=== PATIENT | male | born 1945 | race Caucasian/White ===

== ENCOUNTER 2017-09-10 22:54 | Inpatient (IN) | payer MEDICARE ==
[2017-09-10 23:32] LABS: #Lymphocytes 1.2 thou/uL (1.20-3.40); #Monocytes 0.9 thou/uL (0.11-0.59); #Neutrophils 12.9 thou/uL (1.40-6.50); %Basophils 0.2 % (0.0-1.0); %Eosinophils 0.1 % (0.0-10.0); %Lymphocytes 8.2 % (21.0-51.0); %Monocytes 5.8 % (0.0-10.0); Hematocrit 35.1 % (42.0-52.0); Mean Platelet Volume 8.8 fL (7.4-10.4); Red Blood Cell (RBC) Count 3.45 mill/uL (4.70-6.10)
--- NOTE | 2017-09-10 23:41 | RAD ---
AP CHEST: Indication: Emergency examination for shortness of breath. Comparison: None. FINDINGS: There is moderate cardiomegaly with mild to moderate pulmonary vascular congestion. There is perihil ar interstitial and airspace opacities suspicious for edema. No pleural effusion or pneumothorax is evident. No acute osseous abnormality is evident. A small amount of fluid is suspected within the ri ght minor fissure. IMPRESSION: Findings suspicious for mild CHF. POS: [facility]
[2017-09-10 23:53] LABS: ALT (SGPT) 13 U/L (8-55); AST (SGOT) 18 U/L (5-34); Alkaline Phosphatase 106 U/L (40-150); Anion Gap 16 mmol/L (10-20); BUN (Urea Nitrogen) 26 mg/dL (8.4-25.7); Bilirubin, Total 0.7 mg/dL (0.2-1.2); Calc. Creatinine Clearance 0 mL/min (70-130); Calcium 9.2 mg/dL (7.8-10.44); Carbon Dioxide 26 mmol/L (23-31); Chloride 98 mmol/L (98-107); Estimated GFR-MDRD 35; Globulin 3.9 g/dL (2.4-3.5); Magnesium 1.9 mg/dL (1.6-2.6); Protein, Total 7.9 g/dL (5.8-8.1)
[2017-09-10 23:57] LABS: Troponin I 0.067 ng/mL (< 0.028)
[2017-09-11] MEDS ORDERED: methylPREDNISolone Sod Succ/PF 125 MG/2 ML VIAL ONE (01:09)
[2017-09-11] MEDS ORDERED: Water For Inject, Bacteriostat 30 ML ONE (01:09)
[2017-09-11] MEDS ORDERED: Furosemide 20 MG/2 ML VIAL ONE (02:12)
[2017-09-11] MEDS ORDERED: Acetaminophen 325 MG TAB PO PRN (05:04)
[2017-09-11] MEDS ORDERED: Ondansetron HCl/PF 4 MG/2 ML Vial IVP PRN (05:04)
[2017-09-11] MEDS ORDERED: Ondansetron ODT 4 MG TAB SL PRN (05:04)
[2017-09-11] MEDS ORDERED: Lisinopril 5 MG TAB PO SCH ×2 (05:30→09:00)
[2017-09-11] MEDS ORDERED: Metoprolol Tartrate 25 MG TAB PO SCH ×2 (05:30→09:00)
[2017-09-11] MEDS: traMADol HCl 50 MG TAB PO PRN (05:37)
[2017-09-11] MEDS ORDERED: Furosemide 40 MG/4 ML VIAL ONE (06:35)
[2017-09-11] MEDS: Furosemide 40 MG/4 ML VIAL SLOW IVP SCH ×2 (06:39→14:20)
[2017-09-11] MEDS: Mometasone/Formoterol 120 PUFF INHALER INH SCH ×2 (06:53→19:05)
[2017-09-11] MEDS: Folic Acid 1 MG TAB PO SCH (08:38)
[2017-09-11] MEDS: Cyanocobalamin (Vitamin B-12) 1,000 MCG TAB PO SCH (08:38)
[2017-09-11] MEDS ORDERED: Furosemide 20 MG/2 ML VIAL SLOW IVP SCH (09:00)
[2017-09-11] MEDS ORDERED: Hydroxychloroquine Sulfate 200 MG TAB PO SCH (09:00)
--- NOTE | 2017-09-11 09:00 | RAD ---
PA AND LATERAL CHEST: Date: 09/11/17 HISTORY: Dyspnea. COMPARISON: 09/10/17. FINDINGS: Cardiac silhouette is mildly enlarged. Again noted is pulmonary vascular congestion and bilateral pe rihilar interstitial opacities which may be related to associated pulmonary edema. Interstitial dens ities at the medial right lung base have improved. There are small bilateral pleural effusions noted . There is a wedge-shaped compression fracture of the L1 vertebral body with at least 50% loss of he ight anteriorly. The exact age of this fracture is indeterminate based on this exam. Vascular calcif ications seen in the thoracic aorta. No other interval change. IMPRESSION: 1. CHF and mild pulmonary edema, but the interstitial edema does appear mildly improved at the righ t lung base. 2. Small bilateral pleural effusions. 3. Wedge-shaped compression fracture L1 vertebral body of indeterminate age. There is slight retrol isthesis of L1 on L2. POS: [facility]
[2017-09-11] MEDS: Hydroxychloroquine Sulfate 200 MG TAB PO SCH ×2 (09:27→20:02)
--- NOTE | 2017-09-11 12:21 | HP ---
PRIMARY CARE PHYSICIAN: Dr. Caprice Saeed at [facility] in [place]. CHIEF COMPLAINT: Shortness of breath. HISTORY OF PRESENT ILLNESS: Mr. Montes is a pleasant 71-year-old gentleman who was seen at [facility] on 09/11/2017. He reports that he has a history of lupus, tobacco abuse, and Agent [place] exposure in [place]. Yesterday morning, he developed shortness of breath and rhinorrhea at 4:00 a.m. The symptoms improved during the daytime. Yesterday evening, after he ate, he started having shortness of breath. He denies orthopnea. He reports shortness of breath with exertion. He denies any nausea or vomiting. He denies any chest pain. He reports that nebulizer treatments helped. He also reports wheezing and chest tightness. He also reports chills. REVIEW OF SYSTEMS: The following complete review of systems was negative, unless otherwise mentioned in the HPI or below: Constitutional: Weight loss or gain, sense of well-being, ability to conduct usual activities, exercise tolerance. Skin/Breast: Rash, itching, changes in hair growth or loss, nail changes, breast lumps, tenderness, swelling, nipple discharge. Eyes: Vision, double vision, tearing, blind spots, pain. ENT/Mouth: Headaches (location, time of onset, duration, precipitating factors) , vertigo, lightheadedness, injury. Vision, double vision, tearing, blind spots , pain, nose bleeding, colds, obstruction, discharge, dental difficulties, gingival bleeding, dentures, neck stiffness, pain, tenderness, masses in thyroid or other areas. Cardiovascular: Precordial pain, substernal distress, palpitations, syncope, dyspnea on exertion, orthopnea, nocturnal paroxysmal dyspnea, edema, cyanosis, hypertension, heart murmurs, varicosities, phlebitis, claudication. Respiratory: Pain, shortness of breath, wheezing, stridor, cough, hemoptysis, fever or night sweats. Gastrointestinal: Poor appetite, dysphagia, indigestion, abdominal pain, heartburn, eructation, nausea, vomiting, hematemesis, jaundice, constipation, or diarrhea, abnormal stools (brodie-colored, tarry, bloody, greasy, foul smelling ), flatulence, hemorrhoids, recent changes in bowel habits. Genitourinary: Urgency, frequency, dysuria, nocturia, hematuria, polyuria, oliguria, unusual (or change in) color of urine, stones, hesitancy, change in size of stream, dribbling, acute retention or incontinence, libido, potency. Musculoskeletal: Pain, swelling, redness or heat of muscles or joints, limitation, of motion, muscular weakness, atrophy, cramps. Neurologic/Psychiatric: Convulsions, paralyses, tremor, incoordination, paraesthesias, difficulties with memory of speech, sensory or motor disturbances , or muscular coordination (ataxia, tremor), emotional problems, anxiety, depression, previous psychiatric care, unusual perceptions, hallucinations. Allergy/Immunologic: Skin rash, anemia, bleeding tendency, polydipsia, polyuria , intolerance to heat or cold. PAST MEDICAL HISTORY: Significant for hypertension, lupus, skin cancer, spinal compression fracture, rheumatoid arthritis, and chronic kidney disease. PAST SURGICAL HISTORY: Significant for appendectomy, repair of severed ulnar nerve, colon resection due to colon cancer. SOCIAL HISTORY: The patient smokes 5-6 cigarettes a day. He denies alcohol use or recreational drug use. CODE STATUS: I discussed his code status. He is FULL CODE. Substitute decision maker is his partner, Olga Gill. FAMILY HISTORY: No family history of premature coronary artery disease. ALLERGIES: PENICILLIN. CURRENT MEDICATIONS: Lisinopril/hydrochlorothiazide 10/12.5 mg daily, metoprolol 25 mg daily, aspirin 81 mg daily, vitamin B12 1000 mcg daily, folic acid 1 mg daily, Plaquenil 200 mg in the morning and 100 mg at bedtime, and tramadol 50 mg every 4 hours. PHYSICAL EXAMINATION: GENERAL: On examination, Mr. Montes is awake and alert, not in acute distress. VITAL SIGNS: Blood pressure is 160/85, pulse is 74, he is breathing at rate of 16 and saturating 99% on 1 liter of oxygen. He is afebrile. EYES: No scleral icterus. No conjunctival pallor. ENT: Moist mucosal membranes, no oropharyngeal erythema or exudates. NECK: Supple, nontender, normal range of movement. Trachea is midline. RESPIRATORY: Accessory muscles of breathing are not active. Chest wall movements are symmetric bilaterally. He has occasional expiratory wheeze. He has bibasilar crackles. CARDIOVASCULAR: S1 and S2 are heard, regular. Peripheral pulses palpable. No carotid bruit, no pericardial rub. ABDOMEN: Soft, nontender, bowel sounds heard, no hepatomegaly, no splenomegaly. NEUROLOGIC: Cranial nerves II-XII are intact. Deep tendon reflexes are 2+. MUSCULOSKELETAL: Power is 5/5 in all 4 extremities. He has trace bilateral lower extremity edema. SKIN: Pigmentation changes over both upper extremities which patient reports is from Agent [place]p exposure. PSYCHIATRIC: Normal mood, normal affect, patient is oriented to person, place and time. LYMPHATIC: No cervical lymphadenopathy. IMAGING AND LABORATORY DATA: Mr. Montes's labs and investigations were reviewed. I reviewed his electrocardiogram, which shows sinus tachycardia with occasional premature ventricular complexes, no ST changes to suggest an acute coronary syndrome. I also reviewed his chest x-ray, which shows interstitial edema. Laboratory investigations show leukocytosis with 15,000 white cells, of which 85.7% are neutrophils, macrocytic anemia with hemoglobin 11.1, normal platelet count, elevated D-dimer of 1.15, normal electrolytes, elevated creatinine 1.90, elevated blood urea nitrogen 26, indeterminate troponin I of 0.067, elevated BNP of 3647 and an unremarkable liver profile. TSH is normal. ASSESSMENT AND PLAN: Mr. Montes is a pleasant 71-year-old gentleman who was seen at [facility] on 09/11/2017. His problem list includes: 1. Shortness of breath: Etiology is unclear, appears to be a combination of chronic obstructive pulmonary disease and congestive heart failure. 2. Chronic obstructive pulmonary disease: The patient does not have a history of chronic obstructive pulmonary disease. However, his presentation is consistent with chronic obstructive pulmonary disease exacerbation. He will receive oxygen, steroids, bronchodilators and antibiotics. 3. Congestive heart failure exacerbation: This appears to be new onset congestive heart failure. He will be treated with diuretics. We will check 2D echocardiogram. We will consult Cardiology Service for opinion and help with ongoing management. 4. History of rheumatoid arthritis: Continue Plaquenil. 5. Tobacco abuse: Patient has been advised to stop tobacco use. I will start him on nicotine replacement therapy. 6. Elevated D-dimer: V/Q scan is pending, we will follow the consult. 7. History of Agent Crisp exposure: No acute issues at this time. 8. Lupus: Appears stable. Many thanks for allowing me to participate in your patient's care. Please feel free to contact me with any questions or concerns. Estimated length of stay is greater than 2 midnights. MTDD
[2017-09-11] MEDS: Heparin 5,000 UNITS/ML VIAL SC SCH ×2 (14:20→20:01)
--- NOTE | 2017-09-11 15:14 | NM ---
VENTILATION PERFUSION LUNG SCAN: Date: 09/11/17 HISTORY: Hypoxia, elevated D-Dimer, assess for pulmonary embolism. TECHNIQUE: Ventilation imaging obtained following the inhalation of 8.8 mCi Xenon-133 gas by face mask. Perfusi on imaging obtained following the intravenous administration of 6.6 mCi technetium-99m labeled MAA. FINDINGS: Wash-in, equilibrium, and wash-out phase of ventilation imaging appears within normal limits. The pe rfusion imaging is unremarkable, demonstrating no evidence for a focal perfusion defect/deficit. IMPRESSION: Unremarkable VQ scan - very low probability for pulmonary embolism. POS: [facility]
[2017-09-11 18:10] LABS: Anion Gap 15 mmol/L (10-20); BUN (Urea Nitrogen) 33 mg/dL (8.4-25.7); Calc. Creatinine Clearance 35 mL/min (70-130); Calcium 9.8 mg/dL (7.8-10.44); Carbon Dioxide 27 mmol/L (23-31); Chloride 95 mmol/L (98-107); Estimated GFR-MDRD 37
[2017-09-11 18:21] LABS: Troponin I 0.428 ng/mL (< 0.028)
[2017-09-11] MEDS: Metoprolol Tartrate 50 MG TAB PO SCH (20:03)
--- NOTE | 2017-09-11 20:53 | CON ---
DATE OF CONSULTATION: 09/11/2017 HISTORY OF PRESENT ILLNESS: Fernando Monets is a 71-year-old white male with history of hypertension, lupus and Agent [place] exposure who was admitted with increased shortness of breath. This started at 4:00 a.m. this morning. He also noted increased shortness of breath with walking. He denied any nausea, vomiting or chest discomfort. He also noted wheezing. He then came to the emergency room for further evaluation. He usually is followed at the [facility]. PAST MEDICAL HISTORY: Hypertension. He also states that he has renal insufficiency and sees a worldwide chief creative officer at the [facility]. He has a history of Agent [place] exposure, rheumatoid arthritis and lupus. PAST SURGICAL HISTORY: Appendectomy, colon resection due to colon cancer and repair of ulnar nerve. MEDICATIONS: Include tramadol 50 q.4 hours, metoprolol 25 b.i.d., lisinopril 5 mg daily, Plaquenil 400 mg daily, folic acid 1 mg daily, Ecotrin 81 daily and vitamin B12 of 1000 mg daily. ALLERGIES: PENICILLIN. SOCIAL HISTORY: He has cut down to 5 cigarettes per day. He does not drink alcohol. FAMILY HISTORY: Negative for coronary artery disease. REVIEW OF SYSTEMS: Twelve-point review of system is otherwise unremarkable. PHYSICAL EXAMINATION: VITAL SIGNS: Blood pressure 167/78 and pulse 67. HEENT: PERRL. NECK: Supple. LUNGS: Chest reveals crackles at the bases and occasional expiratory wheezing. CARDIAC: S1 and S2 are normal, without any S3, S4 or murmurs. Carotid upstrokes normal without bruits. ABDOMEN: Normal bowel sounds, without tenderness, organomegaly. EXTREMITIES: Revealed no clubbing, cyanosis or edema. NEUROLOGIC: Grossly intact. SKIN: Warm and dry. LABORATORY AND X-RAY FINDINGS: EKG revealed sinus tachycardia with rate of 110 per minute with occasional PVCs, left axis deviation, probable left ventricular hypertrophy, nonspecific ST and T-wave changes. Hemoglobin 11.1, hematocrit 35.1, white count 15,000 and platelets 170,000. D-dimer 1.15, sodium 136, potassium 4.1, chloride 96, carbon dioxide 26, BUN 26, creatinine 1.90 and glucose 220. Troponin I 0.067. BNP 3647.8. TSH is normal. Urinalysis is unremarkable. Chest x-ray revealed mild pulmonary edema and small bilateral effusions with the elevated D-dimer and his renal insufficiency, he underwent lung ventilation perfusion scan which was low probability for pulmonary embolism. Echocardiogram revealed mild left atrial enlargement, mild global left ventricular hypokinesis with an ejection fraction of 40% to 45%, evidence of diastolic dysfunction, aortic valvular fibrosis, moderate mitral regurgitation, mild to moderate tricuspid regurgitation and mild pulmonic insufficiency. IMPRESSION: 1. Acute on chronic diastolic and systolic congestive heart failure with significantly elevated BNP, pleural effusions and pulmonary edema on chest x- ray. 2. Chronic obstructive pulmonary disease exacerbation. 3. Smoker. 4. Hypertension, poorly controlled. 5. History of lupus. 6. History of rheumatoid arthritis. 7. History of Agent [place] exposure. 8. Chronic kidney disease. PLAN: Creatinine will be repeated this afternoon as well as another set of cardiac enzymes. The patient will continue to be diuresed. I would increase his metoprolol to 50 mg b.i.d. Further evaluation probably will take place at [facility] in [place] where he receives most of his care where he wished to be further evaluated. ZANE
[2017-09-12 05:15] LABS: #Lymphocytes 0.8 thou/uL (1.20-3.40); #Monocytes 0.8 thou/uL (0.11-0.59); #Neutrophils 11.4 thou/uL (1.40-6.50); %Basophils 0.1 % (0.0-1.0); %Monocytes 6.2 % (0.0-10.0); Hematocrit 30.6 % (42.0-52.0); Mean Platelet Volume 9.5 fL (7.4-10.4); Red Blood Cell (RBC) Count 3.05 mill/uL (4.70-6.10)
[2017-09-12 05:35] LABS: Anion Gap 14 mmol/L (10-20); BUN (Urea Nitrogen) 39 mg/dL (8.4-25.7); Calc. Creatinine Clearance 35 mL/min (70-130); Calcium 9.5 mg/dL (7.8-10.44); Carbon Dioxide 30 mmol/L (23-31); Chloride 96 mmol/L (98-107); Estimated GFR-MDRD 36
[2017-09-12] MEDS: Furosemide 40 MG/4 ML VIAL SLOW IVP SCH (05:51)
[2017-09-12 06:25] VITALS: BMI 20.2
[2017-09-12] MEDS: Mometasone/Formoterol 120 PUFF INHALER INH SCH ×2 (06:52→18:34)
[2017-09-12 08:52] LABS: Hemoglobin A1c 5.3 % (4.0-6.0)
[2017-09-12] MEDS ORDERED: Communication Order-Pharmacy FS SCH (09:00)
[2017-09-12] MEDS: Cyanocobalamin (Vitamin B-12) 1,000 MCG TAB PO SCH (09:28)
[2017-09-12] MEDS: Hydroxychloroquine Sulfate 200 MG TAB PO SCH ×2 (09:29→21:42)
[2017-09-12] MEDS: predniSONE 20 MG TAB PO SCH (09:29)
[2017-09-12] MEDS: Sodium Chloride 0.9% 1,000 ML IV SCH ×2 (09:30→21:45)
[2017-09-12] MEDS: Folic Acid 1 MG TAB PO SCH (09:30)
[2017-09-12] MEDS: Metoprolol Tartrate 50 MG TAB PO SCH ×2 (09:30→21:42)
--- NOTE | 2017-09-12 12:01 | PDOC.PN ---
- Subjective Encounter Start Date: 09/12/17 Encounter Start Time: 09:00 Pt seen for followup re: NSTEMI. Denies chest pain, shortness of breath, fevers or chills. No nausea or vomiting. - Objective Resuscitation Status: Resuscitation Status FULL:Full Resuscitation Vital Signs & Weight: Vital Signs (12 hours) Temp Pulse Resp BP Pulse Ox 09/12/17 08:00 97.8 F 76 16 163/72 H 98 09/12/17 06:52 69 16 99 09/12/17 06:49 69 18 99 09/12/17 04:26 98.0 F 66 18 131/60 94 L Weight Weight 145 lb 9 oz I&O: 09/11/17 09/12/17 09/13/17 06:59 06:59 06:59 Intake Total 1440 Output Total 300 2680 Balance -300 -1240 Result Diagrams: 09/12/17 04:54 09/12/17 04:54 Phys Exam - Physical Examination Constitutional: NAD HEENT: PERRLA, moist MMs, sclera anicteric, oral pharynx no lesions Neck: no nodes, no JVD, supple, full ROM Respiratory: no wheezing, no rales, no rhonchi, clear to auscultation bilateral Cardiovascular: RRR, no rub Gastrointestinal: soft, non-tender, no distention, positive bowel sounds Musculoskeletal: pulses present Neurological: moves all 4 limbs Lymphatic: no nodes Psychiatric: normal affect, A&O x 3 Skin: normal turgor, cap refill <2 seconds Deviation from normal: Hyperpigmentation of upper extremities Dx/Plan (1) NSTEMI (non-ST elevated myocardial infarction) Code(s): I21.4 - NON-ST ELEVATION (NSTEMI) MYOCARDIAL INFARCTION Status: Acute (2) Lupus Code(s): L93.0 - DISCOID LUPUS ERYTHEMATOSUS Status: Chronic (3) Rheumatoid arthritis Code(s): M06.9 - RHEUMATOID ARTHRITIS, UNSPECIFIED Status: Chronic (4) Tobacco abuse Code(s): Z72.0 - TOBACCO USE Status: Chronic - Plan * . Pt's troponin in critical range now. Plan for cath tomorrow noted. Continue nicotine replacement therapy. Continue aspirin, beta laron, ACEI. Continue Plaquenil. Review of Systems - Review of Systems Constitutional: negative: Fever, Chills, Sweats, Weakness, Malaise Respiratory: negative: Cough, Dry, Shortness of Breath, Hemoptysis, SOB with Excertion, Pleuritic Pain, Sputum, Wheezing Cardiovascular: negative: Chest Pain, Palpitations, Orthopnea, Paroxysmal Noc. Dyspnea, Edema, Light Headedness Gastrointestinal: negative: Nausea, Vomiting, Abdominal Pain, Diarrhea, Constipation, Melena, Hematochezia Genitourinary: negative: Dysuria, Frequency, Incontinence, Hematuria, Retention - Medications/Allergies Allergies/Adverse Reactions: Allergies Allergy/AdvReac Type Severity Reaction Status Date / Time Penicillins Allergy Verified 09/11/17 04:55 Medications: Current Medications Albuterol/Ipratropium (Duoneb) 3 ml NEB Q6H PRN PRN Reason: SOB &/or Wheezing Albuterol/Ipratropium (Duoneb) 3 ml NEB [id number] [facility] Last Admin: 09/12/17 06:49 Dose: 3 ml Aspirin (Aspirin Chewable) 81 mg PO DAILY [facility] Last Admin: 09/12/17 09:30 Dose: 81 mg Cyanocobalamin (Vitamin B-12) 1,000 mcg PO DAILY [facility] Last Admin: 09/12/17 09:28 Dose: 1,000 mcg Folic Acid (Folvite) 1 mg PO DAILY [facility] Last Admin: 09/12/17 09:30 Dose: 1 mg Hydralazine HCl (Apresoline) 10 mg SLOW IVP Q4H PRN PRN Reason: SBP>170 Hydroxychloroquine Sulfate (Plaquenil) 200 mg PO DAILY [facility] Last Admin: 09/12/17 09:29 Dose: 200 mg Hydroxychloroquine Sulfate (Plaquenil) 100 mg PO HS [facility] Last Admin: 09/11/17 20:02 Dose: 100 mg Sodium Chloride (Normal Saline 0.9%) 1,000 mls @ 100 mls/hr IV .Q10H [facility] Last Admin: 09/12/17 09:30 Dose: Not Given Metoprolol Tartrate (Lopressor) 50 mg PO BID [facility] Last Admin: 09/12/17 09:30 Dose: 50 mg Mometasone Furoate/Formoterol Fumar (Dulera 100 Mcg/5 Mcg Inhaler) 2 puff INH BID-RT [facility] Last Admin: 09/12/17 06:52 Dose: 2 puff Pantoprazole Sodium (Protonix) 40 mg PO DAILY [facility] Last Admin: 09/12/17 09:32 Dose: 40 mg Prednisone (Prednisone) 40 mg PO DAILY [facility] Last Admin: 09/12/17 09:29 Dose: 40 mg Tramadol HCl (Ultram) 50 mg PO Q4H PRN PRN Reason: Pain Last Admin: 09/11/17 05:37 Dose: 50 mg
[2017-09-12] MEDS ORDERED: Sodium Chloride 0.9% 10 ML ONE (20:11)
[2017-09-12] MEDS: traMADol HCl 50 MG TAB PO PRN (21:43)
[2017-09-13 05:20] LABS: #Lymphocytes 1.3 thou/uL (1.20-3.40); #Monocytes 0.7 thou/uL (0.11-0.59); #Neutrophils 8.2 thou/uL (1.40-6.50); %Eosinophils 0.1 % (0.0-10.0); %Lymphocytes 12.4 % (21.0-51.0); %Monocytes 7.1 % (0.0-10.0); Hematocrit 30.4 % (42.0-52.0); Mean Platelet Volume 9.3 fL (7.4-10.4); Red Blood Cell (RBC) Count 3.05 mill/uL (4.70-6.10); White Blood Cell (WBC) Count 10.2 thou/uL (4.8-10.8)
[2017-09-13 05:30] LABS: Anion Gap 10 mmol/L (10-20); BUN (Urea Nitrogen) 41 mg/dL (8.4-25.7); Calc. Creatinine Clearance 35 mL/min (70-130); Carbon Dioxide 31 mmol/L (23-31); Chloride 96 mmol/L (98-107); Estimated GFR-MDRD 41
[2017-09-13] MEDS ORDERED: Sodium Chloride 0.9% 10 ML ONE (05:50)
[2017-09-13] MEDS: Sodium Chloride 0.9% 1,000 ML IV SCH ×2 (05:58→18:12)
[2017-09-13] MEDS: Hydroxychloroquine Sulfate 200 MG TAB PO SCH ×2 (05:59→20:36)
[2017-09-13] MEDS: Metoprolol Tartrate 50 MG TAB PO SCH ×2 (06:00→20:36)
[2017-09-13] MEDS: predniSONE 20 MG TAB PO SCH (06:00)
[2017-09-13] MEDS: traMADol HCl 50 MG TAB PO PRN ×2 (06:05→20:37)
[2017-09-13] MEDS: Mometasone/Formoterol 120 PUFF INHALER INH SCH ×2 (06:30→19:27)
[2017-09-13] MEDS ORDERED: Heparin 10,000 UNITS/1 ML VIAL ONE (07:06)
[2017-09-13] MEDS ORDERED: Midazolam HCl 2 mg/2 ml Vial ONE (09:41)
[2017-09-13] MEDS ORDERED: Fentanyl 100 MCG/2 ML VIAL ONE (09:41)
[2017-09-13] MEDS ORDERED: Nitroglycerin 100MG/250ML BOT 250 ML ONE (10:04)
[2017-09-13] MEDS ORDERED: Bivalirudin 250 MG VIAL ONE (10:05)
[2017-09-13] MEDS ORDERED: Clopidogrel Bisulfate 300 MG TAB ONE (10:13)
[2017-09-13] MEDS ORDERED: Nitroglycerin 0.4 MG TAB (25 Tab Bottle) SL PRN (11:00)
[2017-09-13] MEDS ORDERED: Morphine 4 MG/ML Carpuject SLOW IVP PRN (11:00)
[2017-09-13] MEDS ORDERED: Sodium Chloride 0.9% 1,000 ML IV SCH (11:03)
[2017-09-13] MEDS ORDERED: hydrALAZINE 25 MG TAB PO SCH (11:45)
[2017-09-13] MEDS ORDERED: hydrALAZINE 20 MG/ML VIAL ONE (11:53)
[2017-09-13] MEDS ORDERED: traMADol HCl 50 MG TAB ONE ×2 (12:21→16:24)
[2017-09-13] MEDS ORDERED: Iopamidol 370 76% 50 ML VIAL FS ONE (14:46)
[2017-09-13] MEDS ORDERED: Iopamidol 370 76% 100 ML VIAL ONE (14:46)
[2017-09-13] MEDS: Folic Acid 1 MG TAB PO SCH (17:04)
[2017-09-13] MEDS: Cyanocobalamin (Vitamin B-12) 1,000 MCG TAB PO SCH (17:04)
--- NOTE | 2017-09-13 17:29 | PDOC.PN ---
- Subjective Encounter Start Date: 09/13/17 Encounter Start Time: 17:29 Pt seen for followup re:NSTEMI. Denies chest pain, shortness of breath. Had cath. No nausea or vomiting. - Objective Resuscitation Status: Resuscitation Status FULL:Full Resuscitation MAR Reviewed: Yes Vital Signs & Weight: Vital Signs (12 hours) Temp Pulse Resp BP Pulse Ox 09/13/17 17:05 54 L 09/13/17 07:12 97.9 F 54 L 18 167/81 H 96 09/13/17 05:54 58 L 20 174/83 H Weight Weight 136 lb I&O: 09/12/17 09/13/17 09/14/17 06:59 06:59 06:59 Intake Total 1440 870 931 Output Total 2680 2100 175 Balance -1240 -1230 756 Result Diagrams: 09/13/17 04:56 09/13/17 04:56 EKG Reviewed by me: Yes (Tele: NSR) Phys Exam - Physical Examination Constitutional: NAD HEENT: moist MMs Neck: supple Respiratory: clear to auscultation bilateral Cardiovascular: RRR Gastrointestinal: soft Musculoskeletal: pulses present Neurological: moves all 4 limbs Psychiatric: normal affect Deviation from normal: discoloration of saray forearms Dx/Plan (1) NSTEMI (non-ST elevated myocardial infarction) Code(s): I21.4 - NON-ST ELEVATION (NSTEMI) MYOCARDIAL INFARCTION Status: Acute (2) Lupus Code(s): L93.0 - DISCOID LUPUS ERYTHEMATOSUS Status: Chronic (3) Rheumatoid arthritis Code(s): M06.9 - RHEUMATOID ARTHRITIS, UNSPECIFIED Status: Chronic (4) Tobacco abuse Code(s): Z72.0 - TOBACCO USE Status: Chronic - Plan * . s/p cath, 3 stents. Continue nicotine replacement therapy. Likely home 1-2 days. Review of Systems - Review of Systems Constitutional: negative: Fever, Chills, Sweats, Weakness, Malaise Cardiovascular: negative: Chest Pain, Palpitations, Orthopnea, Paroxysmal Noc. Dyspnea, Edema, Light Headedness Gastrointestinal: negative: Nausea, Vomiting, Abdominal Pain, Diarrhea, Constipation, Melena, Hematochezia - Medications/Allergies Allergies/Adverse Reactions: Allergies Allergy/AdvReac Type Severity Reaction Status Date / Time Penicillins Allergy Verified 09/11/17 04:55 Medications: Current Medications Albuterol/Ipratropium (Duoneb) 3 ml NEB Q6H PRN PRN Reason: SOB &/or Wheezing Aspirin (Aspirin Chewable) 81 mg PO DAILY [facility] Last Admin: 09/13/17 05:59 Dose: 81 mg Atorvastatin Calcium (Lipitor) 20 mg PO HS [facility] Clopidogrel Bisulfate (Plavix) 75 mg PO DAILY [facility] Cyanocobalamin (Vitamin B-12) 1,000 mcg PO DAILY [facility] Last Admin: 09/13/17 17:04 Dose: Not Given Folic Acid (Folvite) 1 mg PO DAILY [facility] Last Admin: 09/13/17 17:04 Dose: Not Given Hydralazine HCl (Apresoline) 10 mg SLOW IVP Q4H PRN PRN Reason: SBP>170 Hydralazine HCl (Apresoline) 25 mg PO BID [facility] Hydroxychloroquine Sulfate (Plaquenil) 200 mg PO DAILY [facility] Last Admin: 09/13/17 05:59 Dose: 200 mg Hydroxychloroquine Sulfate (Plaquenil) 100 mg PO HS [facility] Last Admin: 09/12/17 21:42 Dose: 100 mg Sodium Chloride (Normal Saline 0.9%) 1,000 mls @ 60 mls/hr IV .[id number] [facility] Metoprolol Tartrate (Lopressor) 50 mg PO BID [facility] Last Admin: 09/13/17 06:00 Dose: 50 mg Mometasone Furoate/Formoterol Fumar (Dulera 100 Mcg/5 Mcg Inhaler) 2 puff INH BID-RT [facility] Last Admin: 09/13/17 06:30 Dose: Not Given Morphine Sulfate (Morphine) 2 mg SLOW IVP Q4H PRN PRN Reason: Moderate Pain (4-6) Morphine Sulfate (Morphine) 4 mg SLOW IVP Q4H PRN PRN Reason: Severe Pain (7-10) Nitroglycerin (Nitrostat) 0.4 mg SL Q5MIN PRN PRN Reason: Chest Pain Pantoprazole Sodium (Protonix) 40 mg PO DAILY [facility] Last Admin: 09/13/17 06:00 Dose: 40 mg Prednisone (Prednisone) 40 mg PO DAILY [facility] Last Admin: 09/13/17 06:00 Dose: 40 mg Tramadol HCl (Ultram) 50 mg PO Q4H PRN PRN Reason: Pain Last Admin: 09/13/17 06:05 Dose: 50 mg
[2017-09-13] MEDS: hydrALAZINE 25 MG TAB PO SCH (20:36)
[2017-09-13] MEDS ORDERED: Atorvastatin Calcium 20 MG TAB PO SCH (21:00)
--- NOTE | 2017-09-13 21:19 | CCL ---
PROCEDURE: Coronary arteriography, stent placement in the mid LAD and the mid and distal right coronary artery. INDICATION; Non-STEMI. Patient was brought to cardiac catheterization lab and the right groin was prepped and draped in usual fashion. 1% lidocaine was infiltrated. A 6 Maltese sheath was placed into the right femoral artery and heparin 3000 units given. A 6 Maltese [place] left 4 followed by 6 M[place]ese [place] right 4 was used for coronary arteriography. Diagnostic catheterization was performed using biplane. A 6 Maltese [place] left 5 guide catheter was inserted. Angiomax bolus and drip were given. The patient was given 600 mg of Plavix. A floppy choice wire was advanced to the distal LAD. Rebel 3.0 x 32 mm stent was positioned and deployed with excellent result. Left 5 guide was removed and a 6 Maltese [place] right 4 guide was inserted. Floppy Choice wire was advanced to the distal right coronary artery. Rebel 3.0 x 28 mm stent was then positioned covering the distal lesion. Rebel 2.5 x 28 mm stent was inserted; however, would not overlap and enter the previous stent. This was removed and an Emerge 3.5 x 20 mm balloon was inserted in the proximal portion of the previous stent was dilated. Rebel 3.5 x 28 mm stent was then reinserted and would overlapped the previous stent. This was deployed. There was some leaking around the 6 Maltese sheath the end of the case and this was removed and a 7 Maltese sheath was inserted with hemostasis being obtained. Angiomax was discontinued. The patient was transferred to the PCU in good condition. RESULTS: Coronary arteriography. 1. The left main was normal. 2. The LAD had a 70% and 80% mid stenosis. 3. The circumflex had a 50% proximal stenosis. 4. The right coronary artery had a 70% mid stenosis and a 70% distal stenosis. INTERVENTION RESULTS (Bare metal stent) mid LAD. The 70% lesion was reduced to 0% and the 80% lesion was reduced to 0%. The distal 70% lesion was reduced to 0% and the mid 70% lesion was reduced to 0%. IMPRESSION: 1. Three-vessel coronary artery disease. 2. Successful stent placement in the mid LAD and mid and distal RCA. [facility] CENTERArabella
[2017-09-14 05:11] LABS: #Lymphocytes 1.8 thou/uL (1.20-3.40); #Monocytes 0.9 thou/uL (0.11-0.59); #Neutrophils 6.9 thou/uL (1.40-6.50); %Basophils 0.3 % (0.0-1.0); %Eosinophils 0.1 % (0.0-10.0); %Lymphocytes 18.6 % (21.0-51.0); %Monocytes 9.5 % (0.0-10.0); Hematocrit 29.2 % (42.0-52.0); Mean Platelet Volume 9.4 fL (7.4-10.4); Red Blood Cell (RBC) Count 2.93 mill/uL (4.70-6.10); White Blood Cell (WBC) Count 9.6 thou/uL (4.8-10.8)
[2017-09-14 05:24] LABS: ALT (SGPT) 11 U/L (8-55); AST (SGOT) 12 U/L (5-34); Alkaline Phosphatase 71 U/L (40-150); Anion Gap 13 mmol/L (10-20); BUN (Urea Nitrogen) 34 mg/dL (8.4-25.7); Bilirubin, Total 0.5 mg/dL (0.2-1.2); Calc. Creatinine Clearance 38 mL/min (70-130); Calcium 8.4 mg/dL (7.8-10.44); Carbon Dioxide 25 mmol/L (23-31); Chloride 101 mmol/L (98-107); Estimated GFR-MDRD 44; Globulin 3.1 g/dL (2.4-3.5); Protein, Total 6.5 g/dL (5.8-8.1)
[2017-09-14] MEDS: hydrALAZINE 20 MG/ML VIAL SLOW IVP PRN ×2 (05:28→13:58)
[2017-09-14] MEDS: traMADol HCl 50 MG TAB PO PRN ×3 (05:28→13:31)
[2017-09-14] MEDS: Sodium Chloride 0.9% 1,000 ML IV SCH (05:29)
[2017-09-14] MEDS ORDERED: Sodium Chloride 0.9% 10 ML ONE (07:56)
[2017-09-14] MEDS: Folic Acid 1 MG TAB PO SCH (08:11)
[2017-09-14] MEDS: hydrALAZINE 25 MG TAB PO SCH (08:11)
[2017-09-14] MEDS: Metoprolol Tartrate 50 MG TAB PO SCH (08:11)
[2017-09-14] MEDS: Cyanocobalamin (Vitamin B-12) 1,000 MCG TAB PO SCH (08:11)
[2017-09-14] MEDS: Hydroxychloroquine Sulfate 200 MG TAB PO SCH (08:11)
[2017-09-14] MEDS: predniSONE 20 MG TAB PO SCH (08:12)
[2017-09-14] MEDS ORDERED: Clopidogrel Bisulfate 75 MG TAB PO SCH (09:00)
[2017-09-14] MEDS: Mometasone/Formoterol 120 PUFF INHALER INH SCH (10:54)
[2017-09-14 12:25] VITALS: TEMP 98.1
[2017-09-14] MEDS ORDERED: Bisacodyl 5 MG TAB PO PRN (12:33)
[2017-09-14 14:03] VITALS: BP 164/77
[2017-09-14] MEDS ORDERED: hydrALAZINE 25 MG TAB PO SCH (15:00)
--- NOTE | 2017-09-14 15:57 | EKG ---
Test Reason : Blood Pressure : / mmHG Vent. Rate : 078 BPM Atrial Rate : 078 BPM P-R Int : 156 ms QRS Dur : 082 ms QT Int : 494 ms P-R-T Axes : 051 -12 -19 degrees QTc Int : 563 ms Normal sinus rhythm Minimal voltage criteria for LVH, may be normal variant T wave abnormality, consider anterolateral ischemia Prolonged QT Abnormal ECG Confirmed by DR. Mimi CRUZ ([id number]) on 09/14/2017 3:57:20 PM Referred By: ROSEMARY Confirmed By:DR. Mimi CRUZ
--- NOTE | 2017-09-14 16:05 | EKG ---
Test Reason : POST STENTS X 3 Blood Pressure : / mmHG Vent. Rate : 059 BPM Atrial Rate : 059 BPM P-R Int : 168 ms QRS Dur : 080 ms QT Int : 474 ms P-R-T Axes : 042 -25 -10 degrees QTc Int : 469 ms Sinus bradycardia Moderate voltage criteria for LVH, may be normal variant T wave abnormality, consider anterior ischemia Prolonged QT Abnormal ECG When compared with ECG of 12-SEP-2017 09:08, (Unconfirmed) QT has shortened Confirmed by DR. Mimi CRUZ ([id number]) on 09/14/2017 4:05:13 PM Referred By: ROSEMARY Confirmed By:DR. Mimi CRUZ
--- NOTE | 2017-09-14 16:11 | EKG ---
Test Reason : Blood Pressure : / mmHG Vent. Rate : 061 BPM Atrial Rate : 061 BPM P-R Int : 158 ms QRS Dur : 084 ms QT Int : 504 ms P-R-T Axes : 045 -20 -03 degrees QTc Int : 507 ms Sinus rhythm with occasional Premature ventricular complexes Moderate voltage criteria for LVH, may be normal variant T wave abnormality, consider anterior ischemia Prolonged QT Abnormal ECG When compared with ECG of 13-SEP-2017 11:38, (Unconfirmed) Premature ventricular complexes are now Present Confirmed by DR. Mimi CRUZ ([id number]) on 09/14/2017 4:11:16 PM Referred By: ROSEMARY Confirmed By:DR. Mimi CRUZ
--- NOTE | 2017-09-14 16:39 | DIS ---
DATE OF ADMISSION: 09/11/2017 DATE OF DISCHARGE: 09/14/2017 PRIMARY CARE PHYSICIAN: Dr. Caprice Saeed at [facility] in [place]. DISCHARGE DIAGNOSES: 1. Non-ST elevation myocardial infarction. 2. Suspected chronic obstructive pulmonary disease exacerbation, improved. 3. Coronary artery disease, on cardiac catheterization. 4. Status post percutaneous coronary intervention with 3 bare-mental status, mid left anterior desc ending coronary artery, distal right coronary artery, and mid right coronary artery. 5. Hypertension. 6. A 2D echocardiogram on 09/11/2017 showing ejection fraction of 40%-45%, EF flow reversal suggest milvia of diastolic dysfunction, normal right ventricular size and function. CONDITION OF PATIENT AT THE TIME OF DISCHARGE: Stable. I assessed Mr. Montes on the day of discha rge. He denies any chest pain or shortness of breath. Vital signs are stable. S1 and S2 are heard , regular. Lungs are clear to auscultation bilaterally. DISCHARGE MEDICATIONS: Aspirin 81 mg daily, Plavix 75 mg daily, Lipitor 20 mg at bedtime, vitamin B 12 1000 mcg daily, folic acid 1 mg daily, Plaquenil 400 mg daily, lisinopril 5 mg daily, Lopressor 5 0 mg 2 times a day, Dulera 200/5 mcg 2 puffs 2 times a day, hydralazine 50 mg 3 times a day, Medrol Dosepak, and tramadol 50 mg every 4 hours. HOSPITAL COURSE: Mr. Montes is a pleasant 71-year-old gentleman, who was admitted to [facility] on 09/11/2017 for shortness of breath, likely secondary to chronic obstructive pulmonary disease exacerbation. He was treated with oxygen, steroids, and bronchodilators. His tro ponin I, which was indeterminate at the time of admission, worsened into the non-ST elevation myocar dial infarction range. He was seen by Cardiology Service. He had 2D echocardiogram on 09/11/2017, followed by cardiac catheterization on 09/13/2017, results as described above. He underwent success ful PCI with 3 bare-metal stents. His blood pressure was elevated on the day of discharge. His hydralazine dose was increased to 50 m g 3 times a day. He is advised to follow up with his primary care physician as well as with Cardiol ogy Service. Many thanks for allowing me to participate in your patient's care. Please feel free to contact me w ith any questions or concerns. CONSULTATIONS DURING THIS HOSPITALIZATION: Cardiology, Dr. Holguin. On the day of discharge, he has a white count of 9600, hemoglobin 9.3, platelet count 141,000. Sodi um 135 and creatinine 1.57. During this hospitalization, he had triglycerides 80, cholesterol 144, LDL cholesterol 90, and HDL cholesterol 38. DISCHARGE DESTINATION: Home. TOTAL AMOUNT OF TIME SPENT COORDINATING THIS DISCHARGE: 38 minutes.
--- NOTE | 2017-09-14 23:06 | ADD-DIS ---
ADDENDUM: PRIMARY CARE PROVIDER: Dr. Caprice Saeed at [facility] in [place]. Mr. Montes's lisinopril was discontinued because of renal insufficiency. This will need to be reas sessed by his primary care physician when his labs are rechecked.
[2017-09-15] MEDS ORDERED: Aspirin 325 mg Enteric Coated Tablet PO SCH (09:00)
--- NOTE | 2017-09-15 18:14 | EKG ---
Test Reason : Blood Pressure : / mmHG Vent. Rate : 110 BPM Atrial Rate : 110 BPM P-R Int : 156 ms QRS Dur : 088 ms QT Int : 360 ms P-R-T Axes : 105 -38 095 degrees QTc Int : 487 ms Sinus tachycardia with occasional Premature ventricular complexes Left axis deviation Voltage criteria for left ventricular hypertrophy Nonspecific ST and T wave abnormality Abnormal ECG Confirmed by NEVAEH Bazzi, FLORENTIN ([id number]), editor school photograph REYMUNDO CORDON ([id number]) on 09/15/2017 6:13:42 PM Referred By: Confirmed By:FLORENTIN HERRING M.D.
== END 2017-09-14 16:11 | disposition home or self-care (01) | DRG 248 ==
LOC: ERS 22:54 → 2NO 09-11 02:00
PROVIDERS: ADMIT Internal Medicine; ATTEND Internal Medicine
PROC: B2111ZZ Fluoroscopy of Multiple Coronary Arteries using Low Osmolar Contrast (ICD-10-PCS; principal; 2017-09-13)
PROC: 02723FZ Dilation of Coronary Artery, Three Arteries with Three Intraluminal Devices, Percutaneous Approach (ICD-10-PCS; 2017-09-13)
DX: I21.4 Non-ST elevation (NSTEMI) myocardial infarction (principal); I50.43 Acute on chronic combined systolic (congestive) and diastolic (congestive) heart failure; J44.1 Chronic obstructive pulmonary disease with (acute) exacerbation; I13.0 Hypertensive heart and chronic kidney disease with heart failure and stage 1 through stage 4 chronic kidney disease, or unspecified chronic kidney disease; M06.9 Rheumatoid arthritis, unspecified; I25.10 Atherosclerotic heart disease of native coronary artery without angina pectoris; Z85.038 Personal history of other malignant neoplasm of large intestine; F17.210 Nicotine dependence, cigarettes, uncomplicated; N18.9 Chronic kidney disease, unspecified; L93.0 Discoid lupus erythematosus
CPT/HCPCS: 36415; 71010; 71020; 78582; 80048; 80053; 80061; 82553; 83036; 83735; 83880; 84443; 84484; 85025; 85347; 85379; 92928; 92929; 93005; 93010; 93306; 93454; 93798; 94640; 96374; 96375; 99152; 99153; A4216; A9540; A9558; C1725; C1769; C1876; C1887; J0360; J0583; J1644; J1940; J2250; J2930; J3010; J7506; J7620

== ENCOUNTER 2017-11-02 18:40 | Inpatient (IN) | payer MEDICARE ==
[2017-11-02 19:30] LABS: Troponin I 0.156 ng/mL (< 0.028)
[2017-11-02] MEDS ORDERED: Acetaminophen 325 MG TAB PO PRN (22:03)
[2017-11-02] MEDS ORDERED: Ondansetron ODT 4 MG TAB PO PRN (22:03)
[2017-11-02 22:09] LABS: Troponin I 0.142 ng/mL (< 0.028)
[2017-11-03] MEDS ORDERED: PROVENTIL INHALER 6.7 G (200 INHALATIONS) INH PRN (00:05)
[2017-11-03] MEDS ORDERED: Nitroglycerin 0.4 MG TAB (25 Tab Bottle) SL PRN (00:15)
[2017-11-03 01:21] LABS: Troponin I 0.156 ng/mL (< 0.028)
--- NOTE | 2017-11-03 02:14 | HP-2 ---
DATE OF ADMISSION: 11/03/2017 CODE STATUS: DO NOT RESUSCITATE; this was discussed with the patient. PRIMARY CARE PHYSICIAN: Unique Pichardo. [facility] sees [facility] ATTENDING PHYSICIAN: Balwinder Vigil MD PGY-1: Valorie Guardado DO CHIEF COMPLAINT: Shortness of breath. HISTORY OF PRESENT ILLNESS: This is a 71-year-old male with past medical history of combined congestive heart failure with an ejection fraction of 40-45% , coronary artery disease status post stents x3, hypertension, and hyperlipidemia that presents with a 2-day history of worsening shortness of breath. Patient states it initially was present on exertion, but has progressed to occurring at rest. He does state this was associated with left- sided chest pressure without radiation of symptoms. He says it feels as though someone is sitting on his chest. He does state that it is different than what he experienced during his last SD back in 08/2017. The patient also endorses 1 day history of cough and congestion. He denies any nausea, vomiting, diarrhea or constipation. He states he has had difficulty urinating for the past day, but upon receiving Lasix in [place], his urination has since improved. The patient endorses compliance with medications. He does state that he has had ongoing lower extremity swelling. He states that the swelling has mildly improved; however, is still present. Patient was given Lasix and Solu-Medrol in the [place] [facility]. Since then, symptoms have greatly improved. PAST MEDICAL HISTORY: 1. Combined congestive heart failure with ejection fraction of 40-45%. 2. Coronary artery disease, status post stents in 08/2017. 3. Hypertension. 4. Hyperlipidemia. 5. Lupus. 6. Rheumatoid arthritis. 7. History of spinal compression fracture. 8. Chronic kidney disease stage 3. PAST SURGICAL HISTORY: 1. Stents x3 in 08/2017. 2. Hemicolectomy. 3. Appendectomy. 4. Squamous cell carcinoma of face, hand and ear, status post excision. 5. Repair of severed ulnar nerve. ALLERGIES: PENICILLIN. MEDICATIONS: 1. Albuterol sulfate 90 mcg 2 puff inhalation q.i.d. p.r.n. 2. Aspirin 81 mg p.o. daily. 3. Clobetasol propionate 45 g tube 1 application topical daily. 4. Vitamin B12 of 1000 mcg tablet p.o. daily. 5. Vitamin D2 of 50,000 units p.o. daily. 6. Finasteride 5 mg p.o. daily. 7. Folic acid 1 mg p.o. daily. 8. Furosemide 20 mg p.o. daily. 9. Hydralazine 50 mg p.o. t.i.d. 10. Plaquenil 300 mg p.o. daily. 11. Lisinopril 2.5 mg p.o. daily. 12. Metoprolol tartrate 100 mg p.o. b.i.d. 13. Nitroglycerin 0.4 mg sublingual every 5 minutes p.r.n. 14. Simvastatin 40 mg p.o. at bedtime. 15. Tramadol 50 mg p.o. q.4 hours p.r.n. for pain. NOTE: Patient was recently taken off of Plavix. FAMILY HISTORY: Noncontributory. SOCIAL HISTORY: Patient is a former smoker. He smoked for many years, but states that he quit approximately 5 years ago. The patient did abuse alcohol; however, he quit in the . The patient denies any drug use. REVIEW OF SYSTEMS: A 12-point review of systems is performed and all were negative except as listed in the HPI and as indicated below. The patient endorses shortness of breath, particularly with exertion as well as lower extremity swelling, paroxysmal nocturnal dyspnea and orthopnea. Patient has back pain secondary to spinal compression fracture, as well as arthritic pain secondary to his lupus and rheumatoid arthritis. Patient has chronic right arm numbness secondary to ulnar nerve injury he sustained during his time in [place]. PHYSICAL EXAMINATION: VITAL SIGNS: Blood pressure 167/82, pulse 77, respiratory rate 22, T-max 98.5, pulse ox 99% on 2 liters. Current weight 65 kilograms. GENERAL: Patient is alert and oriented x3, no acute distress, well-developed, well-nourished, and appropriately interactive. EYES: Pupils equally round, reactive to light and accommodation. Extraocular muscles intact. Conjunctivae within normal limits. ENT: Nasal mucosa within normal limits. NECK: Supple. CARDIOVASCULAR: Regular rate and rhythm. No murmurs, no gallops. Radial pulses 2+, pedal pulses 2+. RESPIRATORY: Normal respiratory effort and no reactions. There are rales at the bilateral bases and mild wheezing on the right. SKIN: Warm and dry. No cyanosis. No lesions. There are several bruises to bilateral upper extremities. ABDOMEN: Soft, nontender to palpation. Bowel sounds positive in all 4 quadrants. No masses or distention. EXTREMITIES: No clubbing, cyanosis. There is 2+ pitting edema up to the level of the knees. MUSCULOSKELETAL: Structure within normal limit. Tone within normal limits. NEUROLOGIC: No focal deficits. Cranial nerves II-XII intact. GCS 15. PSYCHIATRIC: Appropriate. LABORATORY FINDINGS: CBC reveals a white blood cell count 7.6, hemoglobin 9.0, hematocrit 28.2, platelets 122. CMP reveals sodium 137, potassium 4.1, chloride 98, bicarbonate 25, BUN 30, creatinine 1.81, glucose 135, calcium 9.5, total protein 7.6, albumin 4.1, total bilirubin 0.8, AST 25, ALT 27, alkaline phosphatase 129. PT 17.1, PTT 37.1, INR 1.4. CK-MB 19. Troponin 0.130, 0.156, 0.142. BNP 10,719. Chest x-ray shows cardiomegaly and pulmonary vascular congestion. ASSESSMENT AND PLAN: This is a 71-year-old male with past medical history of congestive heart failure with ejection fraction of 44-45%, hypertension, coronary artery disease, status post stents x2 that presents with shortness of breath. 1. Congestive heart failure exacerbation. Patient was admitted to telemetry. He was given Lasix 40 mg IV in [place] [facility] with moderate improvement of symptoms, we will continue IV Lasix b.i.d. starting tomorrow. We will monitor the patient's input and output and place the patient on 1800 mL fluid restriction. Additionally, we will ensure that patient's bed is elevated to 30 degrees at all times to avoid orthopnea and worsening congestive heart failure symptoms. An echo is pending for the a.m. The patient did have recent echo in 08/2017 when he was seen for his myocardial infarction. At that time, his ejection fraction was noted to be 40-45%. We will repeat echo in the a.m. to evaluate for worsening systolic function. Additionally, we will continue all home medications to include an MEGHANA inhibitor, beta laron. 2. Coronary artery disease status post stents x3. The patient was admitted back in 08/2017 for chest pain and was found to have an NSTEMI. At that time, the cardiac catheterization was performed and the patient had 3 stents placed. He was placed on Plavix at that time; however, he was taken off of Plavix recently. He is unable to recall whether or not he was taken off by Cardiology or his physician at the [facility]. It seems like he was taken off within the last couple of weeks. We will give an additional dose of Plavix tomorrow and determine the need for ongoing Plavix treatment. If necessary, we will consult Dr. Holguin, the patient's filter cloth maker for recommendations. 3. Hypertension. We will continue home medications. 4. Hyperlipidemia. Continue home medications. 5. Rheumatoid arthritis. Continue tramadol and Plaquenil. 6. Lupus. Continue home medications to include Plaquenil. 7. Macrocytic anemia. Patient is currently on B12 and folate. We will reevaluate CBC in the a.m. The current worsening of anemia may be secondary to volume overload. 8. Deep venous thrombosis prophylaxis, SCDs. DISPOSITION AND LENGTH OF HOSPITAL STAY: 2 days. Symptomatic medication will be provided. History and physical exam as well as management discussed with Dr. Balwinder Vigil. ZANE
--- NOTE | 2017-11-03 02:22 | HP ---
DATE OF ADMISSION: 11/02/2017 For full history and physical details, please see Dr. Valorie Guardado's dictated history and physic al. Portions of the history and physical have been repeated by myself and I am in agreement with her , plan as documented. HISTORY OF PRESENT ILLNESS: In brief, this patient is a 71-year-old gentleman with a recent hospital ization for NSTEMI with subsequent heart catheterization and stent placement, who [facility] increasing shortness of breath. The patient was recently hospitalized from 09/11/20 to 09/14/2017 for chest pain, as well as likely chronic obstructive pulmonary disease exacerbation . During that time, patient had elevated troponins and ended up going for heart catheterization; how ever, was found to have 3-vessel coronary artery disease. Stents were placed at that time. The nereida ent did well and was discharged. However, the patient notes that over the last few days, he has had increasing shortness of breath. Initially started on exertion, but progressed to being short of amber th at rest as of this morning. The patient also reports worsening orthopnea over the last day or so. He also describes some left-sided chest pressure type pain that he reports is different than when demetria had his heart attack a little over a month ago. The patient otherwise denies any palpitations. He does endorse that over the last few weeks, he has noticed his legs becoming more and more swollen. He endorses that he has been taking all medications as prescribed and has not missed any doses of med ications, especially his Lasix therapy. At the time of my exam, the patient reports feeling substant ially improved compared this time of presentation to the outside ER. PHYSICAL EXAMINATION: VITAL SIGNS: At the time of my exam showed blood pressure of 160s/80s, oxygen saturation of 97% on 2 liters. The patient was not tachycardic. GENERAL: The patient is alert, oriented x4, in no apparent distress. He is sitting upright, was shara y pleasant during our conversation. HEART: Regular rate and rhythm without murmurs, rubs, or gallops. LUNGS: Revealed bilateral rales to the mid lung bilaterally. Also, scattered wheezes. No increased respiratory effort. ABDOMEN: Soft, nondistended. EXTREMITIES: Lower extremities showed pulses intact and symmetrical bilaterally, and 2-3+ pitting ed chloé to the level of the knee. LABORATORY STUDIES: Showed; 1. CBC pertinent for hemoglobin 9 and hematocrit of 28 that is borderline macrocytic. Patient has n ormal white count. 2. BMP reveals a BUN of 30 and creatinine of 1.8, which on review, appears that the patient's baseli ne creatinine over the last several months. 3. Troponins were 0.130, escalating to 0.156. 4. BNP was 10,719. 5. Chest x-ray showed moderate vascular congestion as well as evidence for CHF exacerbation as well as cardiomegaly. ASSESSMENT AND PLAN: 1. A 71-year-old gentleman with history of coronary artery disease and recently diagnosed heart fail ure, presenting with worsening shortness of breath on exertion as well as at rest and increasing lowe r extremity swelling consistent with congestive heart failure exacerbation. 2. In regard to the patient's history of combined systolic and diastolic congestive heart failure, i t appears he is likely in exacerbation. It may be that his medications are not optimal at this time. The patient will be admitted to the telemetry unit for further monitoring. We will obtain strict I 's and O's, fluid restrict for the patient. He will also be given IV Lasix to diurese adequately. A s his echo was obtained at the time of his heart attack approximately 2-1/2 months ago, we will repea t an echo to see if there has been any significant change in his ejection fraction since his heart at tack. No urgent indication to consult Cardiology at this time. The patient does have mildly elevate d troponins which could be due to demand ischemia and those will be trended. We will also make sure the patient remains on all of his indicated medications including MEGHANA inhibitor, beta laron, Lasix therapy, Plavix, aspirin. 2. Chronic kidney disease 3. Patient reports no known history of renal disease. The review of his chart shows his creatinine had been consistently elevated to 1.6 from 1.9 and likely signifies him be ing at chronic kidney disease, stage 3. We will have to monitor this creatinine to ensure that it is not to worsen with diuresis. 3. Hypertension. The patient's blood pressure mildly elevated at this time, it is likely due to flu id overload. Expect improvement with continued diuresis. The patient reports his home blood pressur es are normally 120s/60s. 4. Possible chronic obstructive pulmonary disease. The patient denies the diagnosis, though he does carry the diagnosis in our system. The patient does have scattered wheezes and extensive tobacco us e history. Breathing treatments will be provided as needed for any increased shortness of breath and /or wheezing. 5. Coronary artery disease as above, we will ensure the patient remains on his aspirin, Plavix, and other medications that are needed for his coronary artery disease. Trend troponins and monitor on te lemetry.
[2017-11-03] MEDS: Furosemide 40 MG/4 ML VIAL SLOW IVP SCH ×2 (04:28→15:26)
[2017-11-03] MEDS: traMADol HCl 50 MG TAB PO PRN ×3 (04:28→20:29)
[2017-11-03 04:40] VITALS: BMI 20.5
[2017-11-03 05:23] LABS: #Lymphocytes 0.3 thou/uL (1.20-3.40); #Monocytes 0.2 thou/uL (0.11-0.59); #Neutrophils 4.5 thou/uL (1.40-6.50); %Basophils 0.1 % (0.0-1.0); %Eosinophils 0.5 % (0.0-10.0); %Lymphocytes 5.9 % (21.0-51.0); %Monocytes 3.1 % (0.0-10.0); Hematocrit 27.3 % (42.0-52.0); Mean Platelet Volume 10.3 fL (7.4-10.4); Red Blood Cell (RBC) Count 2.66 mill/uL (4.70-6.10); White Blood Cell (WBC) Count 4.9 thou/uL (4.8-10.8)
[2017-11-03 05:43] LABS: Anion Gap 17 mmol/L (10-20); BUN (Urea Nitrogen) 34 mg/dL (8.4-25.7); Calc. Creatinine Clearance 36 mL/min (70-130); Calcium 9.7 mg/dL (7.8-10.44); Carbon Dioxide 25 mmol/L (23-31); Chloride 99 mmol/L (98-107); Estimated GFR-MDRD 39
[2017-11-03] MEDS: Aspirin 81 mg Enteric Coated Tablet PO SCH (09:32)
[2017-11-03] MEDS: Finasteride 5 MG TAB PO SCH (09:32)
[2017-11-03] MEDS: Folic Acid 1 MG TAB PO SCH (09:32)
[2017-11-03] MEDS: Cyanocobalamin (Vitamin B-12) 1,000 MCG TAB PO SCH (09:32)
[2017-11-03] MEDS: Clopidogrel Bisulfate 75 MG TAB PO SCH (09:32)
[2017-11-03] MEDS: hydrALAZINE 25 MG TAB PO SCH ×3 (09:32→20:26)
[2017-11-03] MEDS: Metoprolol Tartrate 100 MG TAB PO SCH ×2 (09:33→20:26)
[2017-11-03] MEDS: Lisinopril 2.5 MG TAB PO SCH (09:33)
[2017-11-03] MEDS: Hydroxychloroquine Sulfate 200 MG TAB PO SCH (09:33)
--- NOTE | 2017-11-03 10:13 | PDOC.FM ---
- Subjective Subjective: Patient feels well, sitting up in bed, saying that his SOB is better. At this time, he denies SOB, chest pain, endorses swelling in leg and polyuria - Objective MAR Reviewed: Yes Vital Signs & Weight: Vital Signs (12 hours) Temp Pulse Resp BP Pulse Ox 11/03/17 09:33 74 11/03/17 09:32 74 11/03/17 08:00 98.0 F 74 15 11/03/17 07:30 98.0 F 74 15 170/78 H 88 L 11/03/17 04:32 98.3 F 73 18 11/03/17 04:22 98.3 F 73 18 160/74 H 96 11/03/17 00:00 98.6 F 73 18 164/75 H 91 L 11/02/17 23:28 98 Weight Weight 66.587 kg I&O: 11/02/17 11/03/17 11/04/17 06:59 06:59 06:59 Intake Total 310 Output Total 700 Balance -390 Result Diagrams: 11/03/17 04:50 11/03/17 04:50 <Jose Nagy M - Last Filed: 11/03/17 10:11> - Objective Vital Signs & Weight: Vital Signs (12 hours) Temp Pulse Resp BP Pulse Ox 11/03/17 09:33 74 11/03/17 09:32 74 11/03/17 08:00 98.0 F 74 15 11/03/17 07:30 98.0 F 74 15 170/78 H 88 L 11/03/17 04:32 98.3 F 73 18 11/03/17 04:22 98.3 F 73 18 160/74 H 96 11/03/17 00:00 98.6 F 73 18 164/75 H 91 L 11/02/17 23:28 98 Weight Weight 66.587 kg I&O: 11/02/17 11/03/17 11/04/17 06:59 06:59 06:59 Intake Total 310 Output Total 700 Balance -390 Result Diagrams: 11/03/17 04:50 11/03/17 04:50 <Balwinder Vigil R - Last Filed: 11/03/17 10:48> Phys Exam - Physical Examination Constitutional: NAD HEENT: moist MMs Neck: no nodes, supple Respiratory: clear to auscultation bilateral Wheezing throughout all lung field Cardiovascular: RRR, no significant murmur, no rub Gastrointestinal: soft Musculoskeletal: edema present 2 plus to knee Neurological: moves all 4 limbs Lymphatic: no nodes <Jose Nagy M - Last Filed: 11/03/17 10:11> Dx/Plan (1) Congestive heart failure with preserved LV function, NYHA class 1 Code(s): I50.30 - UNSPECIFIED DIASTOLIC (CONGESTIVE) HEART FAILURE Status: Acute Plan: Will get echo for testing. Will start lasix, monitor output. Titrate down on O2 as tolerated. (2) HTN (hypertension) Code(s): I10 - ESSENTIAL (PRIMARY) HYPERTENSION Status: Acute Plan: Continue home medication, may titrate base on BP and echo result (3) HLD (hyperlipidemia) Code(s): E78.5 - HYPERLIPIDEMIA, UNSPECIFIED Status: Acute Plan: Continue home med (4) BPH (benign prostatic hyperplasia) Code(s): N40.0 - BENIGN PROSTATIC HYPERPLASIA WITHOUT LOWER URINRY TRACT SYMP Status: Acute Plan: Stable, continue home med (5) Rheumatoid arthritis Code(s): M06.9 - RHEUMATOID ARTHRITIS, UNSPECIFIED Status: Chronic Plan: Stable, continue home med (6) Tobacco abuse Code(s): Z72.0 - TOBACCO USE Status: Chronic Plan: Hitcher cessation, provide education prior to discharge. (7) CAD (coronary artery disease) Code(s): I25.10 - ATHSCL HEART DISEASE OF [place] CORONARY ARTERY W/O ANG PCTRS Status: Acute Plan: Will continue dual antiplatelet therapy for stent. Patient does not complain of pain this moment. He does have elevated trop, but less then one month ago when he required stenting. <Jose Nagy M - Last Filed: 11/03/17 10:11> Attending Addendum - Attending Addendum I personally evaluated the patient and discussed the management with Dr. Nagy. I agree with the History, Examination, Assessment and Plan documented above with any addition or exceptions noted below. Patient improved this morning. Able to sleep flat and off supplemental O2. Awaiting repeat Echo, continue diuresis and fluid restriction. Anticipate discharge next 1-2 days. <Balwinder Vigil - Last Filed: 11/03/17 10:48>
[2017-11-03] MEDS ORDERED: Atorvastatin Calcium 20 MG TAB PO SCH (21:00)
[2017-11-04] MEDS: traMADol HCl 50 MG TAB PO PRN ×2 (05:00→11:02)
[2017-11-04] MEDS: Furosemide 40 MG/4 ML VIAL SLOW IVP SCH ×2 (05:01→14:43)
[2017-11-04 07:44] LABS: Anion Gap 13 mmol/L (10-20); BUN (Urea Nitrogen) 43 mg/dL (8.4-25.7); Calc. Creatinine Clearance 32 mL/min (70-130); Calcium 9.6 mg/dL (7.8-10.44); Carbon Dioxide 32 mmol/L (23-31); Chloride 95 mmol/L (98-107); Estimated GFR-MDRD 35
--- NOTE | 2017-11-04 09:41 | PDOC.FM ---
- Subjective Subjective: Patient did well most of yesterday, became SOB this morning while laying in bed , requiring 2L O2. At this time, he felt better, so O2 was stopped. He denies having SOB , chest pain at this time. Endorse continual edema in LE. - Objective MAR Reviewed: Yes Vital Signs & Weight: Vital Signs (12 hours) Temp Pulse Resp BP Pulse Ox 11/04/17 08:00 97.7 F 64 18 161/63 H 94 L 11/04/17 05:09 97.7 F 61 18 93 L 11/03/17 22:58 98.3 F 58 L 20 128/80 98 Weight Weight 62.868 kg I&O: 11/03/17 11/04/17 11/05/17 06:59 06:59 06:59 Intake Total 310 1245 Output Total 700 2700 Balance -390 -1455 Result Diagrams: 11/03/17 04:50 11/04/17 06:42 <Jose Nagy M - Last Filed: 11/04/17 09:40> - Objective Vital Signs & Weight: Vital Signs (12 hours) Temp Pulse Resp BP Pulse Ox 11/04/17 08:00 97.7 F 64 18 161/63 H 94 L 11/04/17 05:09 97.7 F 61 18 93 L Weight Weight 62.868 kg I&O: 11/03/17 11/04/17 11/05/17 06:59 06:59 06:59 Intake Total 310 1245 Output Total 700 2700 Balance -390 -1455 Result Diagrams: 11/03/17 04:50 11/04/17 06:42 <Balwinder Vigil - Last Filed: 11/04/17 11:45> Phys Exam - Physical Examination Constitutional: NAD HEENT: moist MMs Neck: no nodes, no JVD, supple Less wheezing then yesterday, some crackles in base Cardiovascular: RRR, no significant murmur Gastrointestinal: soft, non-tender, no distention Musculoskeletal: edema present Edema present bilat in both leg, 2+ Neurological: non-focal Lymphatic: no nodes Psychiatric: normal affect, A&O x 3 Skin: no rash <Joes Nagy M - Last Filed: 11/04/17 09:40> Dx/Plan (1) Congestive heart failure with preserved LV function, NYHA class 1 Code(s): I50.30 - UNSPECIFIED DIASTOLIC (CONGESTIVE) HEART FAILURE Status: Acute Plan: Continue to await echo, continue laxis and monitor output. Will reevaluate for clinical improvement. (2) HTN (hypertension) Code(s): I10 - ESSENTIAL (PRIMARY) HYPERTENSION Status: Acute Plan: Continue home medication, may titrate base on echo result. He had one isolated elevated BP this morning, will continue to monitor and adjust if this becomes regular occurance. (3) HLD (hyperlipidemia) Code(s): E78.5 - HYPERLIPIDEMIA, UNSPECIFIED Status: Acute Plan: Continue home med (4) BPH (benign prostatic hyperplasia) Code(s): N40.0 - BENIGN PROSTATIC HYPERPLASIA WITHOUT LOWER URINRY TRACT SYMP Status: Acute Plan: Stable, continue home med (5) Rheumatoid arthritis Code(s): M06.9 - RHEUMATOID ARTHRITIS, UNSPECIFIED Status: Chronic Plan: Stable, continue home med (6) Tobacco abuse Code(s): Z72.0 - TOBACCO USE Status: Chronic Plan: Promotion Officer cessation, provide education prior to discharge. (7) CAD (coronary artery disease) Code(s): I25.10 - ATHSCL HEART DISEASE OF [place] CORONARY ARTERY W/O ANG PCTRS Status: Acute Plan: Will continue dual antiplatelet therapy for stent. Patient does not complain of pain this moment. He does have elevated trop, but less then one month ago when he required stenting. (8) Hypokalemia Code(s): E87.6 - HYPOKALEMIA Status: Acute Plan: Will replace potassium with 40 meq of K-dur (9) Cardiorenal syndrome Code(s): I13.10 - HYP HRT & CHR KDNY DIS W/O HRT FAIL, W STG 1-4/UNSP CHR KDNY Status: Acute Plan: Has bump in creatinine, possibly due to decreased perfusion with the addition of lasix. However, patient still symptomatic from CHF. Will continue to monitor kidney function. <Jose Nagy - Last Filed: 11/04/17 09:40> Attending Addendum - Attending Addendum I personally evaluated the patient and discussed the management with Dr. Nagy. I agree with the History, Examination, Assessment and Plan documented above with any addition or exceptions noted below. Patient feels well this morning. He has been ambulating without issue. Lower extremity edema improved. He is not requiring O2. Will give diuretic therapy this afternoon and likely discharge after that time. Will need to go home on slightly higher dose of Lasix than what he came in on. <Balwinder Vigil - Last Filed: 11/04/17 11:45>
[2017-11-04] MEDS ORDERED: Potassium Chloride 20 MEQ TAB PO SCH (09:45)
[2017-11-04] MEDS: Finasteride 5 MG TAB PO SCH (10:57)
[2017-11-04] MEDS: Lisinopril 2.5 MG TAB PO SCH (10:57)
[2017-11-04] MEDS: Aspirin 81 mg Enteric Coated Tablet PO SCH (10:58)
[2017-11-04] MEDS: Hydroxychloroquine Sulfate 200 MG TAB PO SCH (10:58)
[2017-11-04] MEDS: Cyanocobalamin (Vitamin B-12) 1,000 MCG TAB PO SCH (10:58)
[2017-11-04] MEDS: Clopidogrel Bisulfate 75 MG TAB PO SCH (10:58)
[2017-11-04] MEDS: Metoprolol Tartrate 100 MG TAB PO SCH (10:58)
[2017-11-04] MEDS: Folic Acid 1 MG TAB PO SCH (10:58)
[2017-11-04] MEDS: hydrALAZINE 25 MG TAB PO SCH ×2 (10:59→14:42)
[2017-11-04 16:02] LABS: Anion Gap 16 mmol/L (10-20); BUN (Urea Nitrogen) 42 mg/dL (8.4-25.7); Calc. Creatinine Clearance 32 mL/min (70-130); Calcium 9.5 mg/dL (7.8-10.44); Carbon Dioxide 32 mmol/L (23-31); Chloride 90 mmol/L (98-107); Estimated GFR-MDRD 35
[2017-11-04 16:06] VITALS: BP 146/67; TEMP 98.4
[2017-11-06] MEDS ORDERED: Ergocalciferol 1.25 MG(50,000 UNITS) CAP PO SCH (09:00)
--- NOTE | 2017-11-06 12:41 | DIS-2 ---
DATE OF ADMISSION: 11/02/2017 DATE OF DISCHARGE: 11/04/2017 ADMITTING ATTENDING: Dr. Balwinder Vigil DISCHARGE ATTENDING: Dr. Balwinder Vigil CONSULTS: None. PROCEDURES: Echocardiogram; impression, ejection fraction estimated at 40-45%, impaired relaxation c ompatible with diastolic dysfunction, mild mitral regurg present. Mild to moderate tricuspid regurg, trivial pericardial effusion. Left atrium mildly dilated, hypokinetic motion of the inferior wall n oted in the left ventricle. Left ventricular size is mildly increased. PRIMARY DIAGNOSES: Congestive heart failure with preserved left ventricular function. SECONDARY DIAGNOSES: 1. Hypertension. 2. Hyperlipidemia. 3. Benign prostatic hypertrophy. 4. Rheumatoid arthritis. 5. Tobacco abuse. 6. Coronary artery disease. 7. Hypokalemia. 8. Cardiorenal syndrome. DISCHARGE MEDICATIONS: 1. Tramadol 50 mg p.o. every 4 hours as needed. 2. Plaquenil 300 mg p.o. daily. 3. Vitamin B12 1000 mcg p.o. daily. 4. Folic acid 1 mg p.o. daily. 5. Aspirin 81 mg p.o. daily. 6. Hydralazine 50 mg p.o. t.i.d. 7. Simvastatin 40 mg p.o. at bedtime. 8. Nitroglycerin 0.4 mg sublingual every 5 minutes. 9. Lisinopril 2.5 mg p.o. daily. 10. Finasteride 5 mg p.o. daily. 11. Clobetasol cream apply topically once daily. 12. Vitamin D2 50 units p.o. weekly. 13. Albuterol sulfate 2 puffs inhalation 4 times daily as needed. 14. Metoprolol tartrate 100 mg p.o. b.i.d. 15. Lasix 20 mg p.o. b.i.d. DISCONTINUED MEDICATIONS: None. HISTORY OF PRESENT ILLNESS AND HOSPITAL COURSE: This is a 71-year-old man who presents for shortness of breath with a pertinent history of recent hospitalization for an NSTEMI with a heart catheterizat ion and stent placement. He was found to have a 3-vessel coronary artery disease at his last visit a month ago. Prior to this admission, he noted over the last few days he had increasing shortness of breath and orthopnea along with left-sided chest pain which he described as different from his heart attack 1 month ago. He noted that his legs becoming more swollen and he endorses taking all his medi cation as instructed and he did not miss any of his Lasix dose. He was admitted to the [facility] for further diuresis of likely CHF and scheduled for an echocardiogram to assess for any acute w orsening of his heart function. Cycle was found to be 40-45% with diastolic dysfunction. As for his chronic issues, he was continued on his home medication and his chronic issues were found to be stab le at his visit. On the day of discharge, he endorses feeling back to his usual self and was walking the torrez easily without any shortness of breath and off of any supplemental oxygen. He was advised on seeing a primary care doctor and to measure his weight daily and was provided with education leeroy rning heart failure. He endorses understanding of this. DISPOSITION: Stable. DISCHARGE INSTRUCTIONS: 1. Location: To home. 2. Diet: Heart healthy, fluid restricted, low sodium diet. 3. Activity: As tolerated. 4. Followup: Follow up with the [facility] within 1-2 weeks.
== END 2017-11-04 17:22 | disposition home or self-care (01) | DRG 291 ==
LOC: ERS 18:40 → 2SW 21:00
PROVIDERS: ADMIT Student in an Organized Health Care Education/Training Program; ATTEND Student in an Organized Health Care Education/Training Program
DX: I13.0 Hypertensive heart and chronic kidney disease with heart failure and stage 1 through stage 4 chronic kidney disease, or unspecified chronic kidney disease (principal); I50.33 Acute on chronic diastolic (congestive) heart failure; J44.9 Chronic obstructive pulmonary disease, unspecified; D53.9 Nutritional anemia, unspecified; M06.9 Rheumatoid arthritis, unspecified; N18.3 Chronic kidney disease, stage 3 (moderate); E87.6 Hypokalemia; E78.5 Hyperlipidemia, unspecified; N40.0 Benign prostatic hyperplasia without lower urinary tract symptoms; R74.8 Abnormal levels of other serum enzymes; F17.210 Nicotine dependence, cigarettes, uncomplicated; I25.10 Atherosclerotic heart disease of native coronary artery without angina pectoris; Z79.02 Long term (current) use of antithrombotics/antiplatelets; I25.2 Old myocardial infarction; Z95.5 Presence of coronary angioplasty implant and graft; M51.86 Other intervertebral disc disorders, lumbar region
CPT/HCPCS: 36415; 80048; 84484; 85025; 93005; 93306; 93798; J1940

== ENCOUNTER 2018-02-11 00:05 | Inpatient (IN) | payer MEDICARE ==
[2018-02-11 01:08] LABS: #Basophils 0.1 thou/uL (0.0-0.2); #Lymphocytes 0.3 thou/uL (1.20-3.40); #Monocytes 0.6 thou/uL (0.11-0.59); #Neutrophils 4.9 thou/uL (1.40-6.50); %Basophils 1.5 % (0.0-1.0); %Eosinophils 0.1 % (0.0-10.0); %Lymphocytes 4.9 % (21.0-51.0); %Monocytes 9.7 % (0.0-10.0); %Neutrophils 83.8 % (42.0-75.0); Hemoglobin 7.4 g/dL (14.0-18.0); Mean Corpuscular HGB CONC 32.7 g/dL (32.0-36.0); Mean Corpuscular Hemoglobin 33.3 pg (27.0-31.0); Platelet Count 143 thou/uL (130-400); RBC Distribution Width 13.8 % (11.5-14.5); Red Blood Cell (RBC) Count 2.23 mill/uL (4.70-6.10); White Blood Cell (WBC) Count 5.9 thou/uL (4.8-10.8)
[2018-02-11 01:31] LABS: ALT (SGPT) 14 U/L (8-55); AST (SGOT) 19 U/L (5-34); Alkaline Phosphatase 116 U/L (40-150); Anion Gap 14 mmol/L (10-20); BUN (Urea Nitrogen) 30 mg/dL (8.4-25.7); Bilirubin, Total 0.8 mg/dL (0.2-1.2); Calc. Creatinine Clearance 0 mL/min (70-130); Calcium 9.8 mg/dL (7.8-10.44); Carbon Dioxide 31 mmol/L (23-31); Chloride 96 mmol/L (98-107); Estimated GFR-MDRD 41; Globulin 3.3 g/dL (2.4-3.5); Glucose 126 mg/dL (83-110); Lipase 13 U/L (8-78); Magnesium 1.9 mg/dL (1.6-2.6); Potassium 3.3 mmol/L (3.5-5.1); Protein, Total 7.3 g/dL (5.8-8.1); Sodium 138 mmol/L (136-145)
[2018-02-11 01:35] LABS: CKMB 2.4 ng/mL (0-6.6)
[2018-02-11] MEDS ORDERED: Pantoprazole 80 MG in Sodium Chloride 0.9% 100 ML IVP SCH (02:30)
[2018-02-11] MEDS ORDERED: Pantoprazole 40 MG VIAL ONE (02:32)
[2018-02-11] MEDS ORDERED: Nitroglycerin 2% Ointment 1 INCH/1 GM Packet ONE (02:32)
[2018-02-11] MEDS ORDERED: Furosemide 40 MG/4 ML VIAL ONE (02:32)
[2018-02-11] MEDS ORDERED: Furosemide 20 MG/2 ML VIAL ONE (02:32)
[2018-02-11] MEDS ORDERED: hydrALAZINE 20 MG/ML VIAL SLOW IVP PRN (04:21)
[2018-02-11] MEDS ORDERED: Benzonatate 100 MG CAP PO PRN (04:21)
[2018-02-11] MEDS ORDERED: Acetaminophen 325 MG TAB PO PRN (04:21)
[2018-02-11] MEDS ORDERED: Bisacodyl 5 MG TAB PO PRN (04:21)
[2018-02-11] MEDS ORDERED: Nitroglycerin 0.4 MG TAB (25 Tab Bottle) SL PRN (04:21)
[2018-02-11] MEDS ORDERED: Ondansetron HCl/PF 4 MG/2 ML Vial IVP PRN (04:21)
[2018-02-11] MEDS ORDERED: Loratadine 10 MG TAB PO PRN (04:21)
[2018-02-11] MEDS ORDERED: cloNIDine 0.1 MG TAB PO PRN (04:21)
[2018-02-11] MEDS ORDERED: Senokot 8.6 MG TAB PO PRN (04:21)
[2018-02-11] MEDS ORDERED: Diabetic Tussin 200 MG/10 ML UDCUP PO PRN (04:21)
[2018-02-11] MEDS ORDERED: Mag-Al 1200 mg/1200 mg/30 ML UDCUP PO PRN (04:21)
[2018-02-11] MEDS ORDERED: Calcium Carbonate 500 MG ChewTAB PO PRN (04:21)
[2018-02-11] MEDS ORDERED: Lorazepam 1 MG TAB PO PRN (04:21)
[2018-02-11 05:23] VITALS: BMI 18.5
[2018-02-11] MEDS ORDERED: PROVENTIL INHALER 6.7 G (200 INHALATIONS) INH PRN (05:25)
[2018-02-11] MEDS ORDERED: Nitroglycerin 0.4 MG TAB (25 Tab Bottle) SL SCH (05:30)
[2018-02-11 05:32] LABS: Troponin I 0.084 ng/mL (< 0.028)
--- NOTE | 2018-02-11 05:59 | HP ---
PRIMARY CARE PHYSICIAN: [facility] in [place], Dr. Saeed. CHIEF COMPLAINT: Shortness of breath. HISTORY OF PRESENT ILLNESS: Mr. Montes is a 72-year-old male with known history of chronic diastolic congestive heart failure as well as coronary artery disease, hypertension, dyslipidemia, rheumatoid arthritis and lupus who presented to the emergency room with the above-mentioned complaint. History is mainly obtained by the patient himself and electronic medical records have been reviewed. Mr. Montes reports that he has been compliant with his medication and has been feeling fairly well up until about 5:30 yesterday afternoon. He started to feel sudden onset of shortness of breath which was worse with lying flat. He has also been having some cough and chills without any fevers. He denies any sick contacts. He reports that recently he was evaluated for a low hemoglobin and was admitted to a different hospital. He has undergone an EGD over there which was unremarkable. He received some blood transfusion and was discharged. He takes aspirin and Plavix for his history of coronary artery disease and has resumed that since then. He has had a normal colonoscopy earlier this year as well. His EGD was about 2 weeks ago. When asked if he is having any hematochezia or melena, he states that he has noticed some dark stools, but he is taking iron supplements. Occult blood testing done in the emergency room with the rectal exam was positive for occult blood. In the emergency room upon presentation, his oxygen saturation was 99% on 2 liters with a blood pressure of 144/100. He was afebrile, but tachypneic with wheezing on examination. Chest x-ray was suggestive of pulmonary vascular congestion. His H&H revealed a hemoglobin of 7.4 with his most recent hemoglobin of 8.8 in 10/2017. He was treated with proton pump inhibitor drip as well as 60 mg of Lasix IV x1 and was started on 1 unit of packed RBC transfusion. He also received transdermal nitroglycerin. He is feeling a little bit better and is now being admitted for acute on chronic congestive heart failure as well as to workup for possible GI bleed. PAST MEDICAL HISTORY: 1. Chronic combined CHF with EF of 40-45% in 10/2017. 2. Coronary artery disease, status post bare metal stents in 08/2017. 3. Hypertension. 4. Dyslipidemia. 5. Lupus. 6. Rheumatoid arthritis. 7. History of spinal compression fracture. 8. Chronic kidney disease stage 3. PAST SURGICAL HISTORY: 1. Cardiac stenting x3 08/2017. 2. Hemicolectomy. 3. Appendectomy. 4. 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 5. Repair of severed ulnar nerve. ALLERGIES: PENICILLIN. FAMILY HISTORY: No family history of premature coronary artery disease. Social History-no more smoking. no drugs/alcohal etc MEDICATIONS: Albuterol inhaler as needed, aspirin 81 mg daily, Plavix 75 mg daily, vitamin B 1200 mcg daily, vitamin D2 daily, finasteride 5 mg daily, folic acid 1 mg daily, Lasix 20 mg daily, hydralazine 50 mg t.i.d., hydroxychloroquine 300 mg daily, lisinopril 2.5 mg daily, metoprolol tartrate 100 mg b.i.d., sublingual nitroglycerin as needed, simvastatin 40 mg daily, tramadol as needed. REVIEW OF SYSTEMS: The following complete review of systems was negative, unless otherwise mentioned in the HPI or below: Constitutional: Weight loss or gain, ability to conduct usual activities. Skin: Rash, itching. Eyes: Double vision, pain. ENT/Mouth: Nose bleeding, neck stiffness, pain, tenderness. Cardiovascular: Palpitations, dyspnea on exertion, orthopnea. Respiratory: Shortness of breath, wheezing, cough, hemoptysis, fever or night sweats. Gastrointestinal: Poor appetite, abdominal pain, heartburn, nausea, vomiting, constipation, or diarrhea. Genitourinary: Urgency, frequency, dysuria, nocturia. Musculoskeletal: Pain, swelling. Neurologic/Psychiatric: Anxiety, depression. Allergy/Immunologic: Skin rash, bleeding tendency. It is negative, except for those mentioned in the history and physical. LABORATORY: CBC shows WBCs 5.9, hemoglobin 7.4, largely microcytic in nature, neutrophils 83%. Serum chemistry shows potassium of 3.3, chloride 96, BUN 30, creatinine 1.67. Lactic acid 2.3. Troponin 0.080. BNP of over 9000. Chest x-ray by my review shows evidence of pulmonary vascular congestion without any significant infiltrate. Formal report pending at this time. A 12- lead EKG shows sinus rhythm at 74 beats per minute with frequent PACs. Left ventricular hypertrophy noticed. There is no atrial fibrillation, but artifact. No acute ST or T-wave changes. PHYSICAL EXAMINATION: VITAL SIGNS: Upon presentation, blood pressure 144/100, pulse of 75, respirations 20, temperature 98, saturating 99% on 2 liters oxygen, temperature 98. GENERAL: No acute distress. He does appear to be having some chills when I went into the examination room, but is otherwise comfortable and nontoxic appearing. Awake, alert, oriented x3. HEENT: Mucous membrane is moist and pink. No oropharyngeal exudate or erythema. Head is normocephalic, atraumatic. Pupils are equal, reactive to light and accommodation. Extraocular movement intact. NECK: Supple without any lymphadenopathy, JVD or bruit. CHEST: Clear to auscultation with a few expiratory wheezes. No crackles. Rate and rhythm is regular without any murmur, rubs or gallops. ABDOMEN: Soft, nontender, nondistended, positive bowel sounds. EXTREMITIES: Free of any cyanosis, clubbing, or edema. NEUROLOGIC: Nonfocal. SKIN: Free of any rashes or bruises. It feels warm and dry to touch. PSYCHIATRIC: Normal affect. IMPRESSION AND PLAN: 1. Dyspnea. This is secondary to acute on chronic diastolic congestive heart failure exacerbation. The patient is compliant with his medications, but most likely needs adjustments in the dosages. At this time, we will start him on Lasix b.i.d. by IV route. 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 Continue to monitor strict I's and O's and put him on fluid restricted heart healthy diet for now. We will also consult [facility] Failure Clinic and Cardiac Rehab inpatient and outpatient. Resume his home medications once confirmed. 2. Gastrointestinal bleed with acute blood loss anemia. He does have positive occult testing for blood in stool. He is on aspirin and Plavix. He reports a normal EGD and colonoscopy earlier this month; however. He has been started on proton pump inhibitor drip which will be continued for now. We will request consultation with Gastroenterology in the morning and monitor H&H closely. He has been receiving transfusion and will be monitored closely for fluid overload symptoms. We will avoid any pharmacological deep venous thrombosis prophylaxis for him for now. 3. History of coronary artery disease. We will restart his MEGHANA inhibitor, beta laron, and statin, but hold his aspirin and Plavix in the light of possible gastrointestinal bleed. 4. Indeterminate troponin. This is most likely secondary to acute congestive heart failure and shortness of breath. We will continue to trend serial cardiac enzymes. 5. Elevated lactic acid. He does not appear to have any evidence to suggest any infection at this time. Urinalysis has not been done. The patient denies any dysuria symptoms. We will check the urinalysis and send it for culture if positive. Otherwise, no indication for any antibiotics at this time. The lactic acid elevation is most likely secondary to tissue hypoxia at this time. 6. CODE STATUS: Full code. Discussed with the patient. Surrogate decision maker is his . 7. History of tobacco abuse and possible chronic obstructive pulmonary disease. Continue with oxygen as needed and inhalers as needed. I do not suspect a chronic obstructive pulmonary disease flare-up at this time. 8. Rheumatoid arthritis. Continue Plaquenil. 9. History of Agent [place] exposure. No acute issues. 10. History of lupus. No active issues. 11. P.r.n. medication orders. DISPOSITION: Mr. Montes is currently being admitted to the hospital for dyspnea related with acute congestive heart failure exacerbation. He is also being worked up for possible GI bleed and blood loss anemia. Estimated length of stay at least 2-3 midnights. MTDD
[2018-02-11] MEDS ORDERED: Potassium Chloride 40 MEQ in Sodium Chloride 0.9% 500 ML IVPB SCH (06:00)
[2018-02-11] MEDS: Furosemide 40 MG/4 ML VIAL SLOW IVP SCH ×2 (06:28→15:50)
[2018-02-11 07:16] LABS: Hemoglobin 8.9 g/dL (14.0-18.0)
[2018-02-11 07:35] LABS: Lactic Acid 2.3 mmol/L (0.5-2.2)
[2018-02-11 07:43] LABS: Troponin I 0.071 ng/mL (< 0.028)
--- NOTE | 2018-02-11 07:55 | RAD ---
PORTABLE CHEST: Date: 02/11/18 HISTORY: Shortness of breath. COMPARISON: 09/10/17. FINDINGS: Mild cardiomegaly with prominent aortic calcification again noted. Mild vascular engorgement. No infi ltrate or significant effusion. IMPRESSION: Cardiomegaly with mild vascular engorgement. POS: MELISSA
[2018-02-11] MEDS ORDERED: traMADol HCl 50 MG TAB PO SCH (09:00)
[2018-02-11] MEDS ORDERED: Enoxaparin Sodium 40 MG/0.4 ML SYRINGE SC SCH (09:00)
[2018-02-11] MEDS ORDERED: Ergocalciferol 1.25 MG(50,000 UNITS) CAP PO SCH (09:00)
[2018-02-11] MEDS: Lisinopril 2.5 MG TAB PO SCH (09:13)
[2018-02-11] MEDS: hydrALAZINE 25 MG TAB PO SCH ×3 (09:14→20:54)
[2018-02-11] MEDS: Metoprolol Tartrate 50 MG TAB PO SCH ×2 (09:14→20:54)
[2018-02-11] MEDS: Folic Acid 1 MG TAB PO SCH (09:14)
[2018-02-11] MEDS: traMADol HCl 50 MG TAB PO PRN ×2 (09:15→20:52)
[2018-02-11] MEDS: Finasteride 5 MG TAB PO SCH (09:15)
[2018-02-11] MEDS: Cyanocobalamin (Vitamin B-12) 1,000 MCG TAB PO SCH (09:15)
[2018-02-11 11:26] LABS: Bilirubin Negative (Negative); Blood, Urine Negative (Negative); Clarity CLEAR (Clear); Glucose, Urine (Dipstick) Negative (Negative); Leukocyte Negative (Negative); Nitrite Negative (Negative); Protein, Urine (Dipstick) Negative (Neg-Trace); Specific Gravity, Urine 1.008 (1.002-1.036); Urobilinogen 0.2 mg/dL (0.2-1.0); pH, Urine 6.5 (5.0-9.0)
--- NOTE | 2018-02-11 11:46 | PDOC.EVN ---
Event Note - Event Note Event Note: Chart reviewed. Patient seen, will follow.
[2018-02-11] MEDS: Hydroxychloroquine Sulfate 200 MG TAB PO SCH (12:27)
[2018-02-11] MEDS: Atorvastatin Calcium 20 MG TAB PO SCH (20:55)
[2018-02-12] MEDS: traMADol HCl 50 MG TAB PO PRN ×4 (00:59→21:37)
[2018-02-12] MEDS: Furosemide 40 MG/4 ML VIAL SLOW IVP SCH ×2 (05:22→15:15)
[2018-02-12] MEDS: Metoprolol Tartrate 50 MG TAB PO SCH ×2 (05:22→21:36)
[2018-02-12 05:32] LABS: #Lymphocytes 0.4 thou/uL (1.20-3.40); #Neutrophils 6.6 thou/uL (1.40-6.50); %Basophils 0.2 % (0.0-1.0); %Lymphocytes 5.2 % (21.0-51.0); %Neutrophils 82.6 % (42.0-75.0); Hemoglobin 9.8 g/dL (14.0-18.0); Mean Corpuscular HGB CONC 32.7 g/dL (32.0-36.0); Mean Corpuscular Hemoglobin 32.6 pg (27.0-31.0); Mean Corpuscular Volume 99.7 fl (80.0-94.0); Mean Platelet Volume 8.8 fL (7.4-10.4); Platelet Count 120 thou/uL (130-400); RBC Distribution Width 14.4 % (11.5-14.5); Red Blood Cell (RBC) Count 2.99 mill/uL (4.70-6.10); White Blood Cell (WBC) Count 7.9 thou/uL (4.8-10.8)
[2018-02-12 05:54] LABS: Anion Gap 14 mmol/L (10-20); BUN (Urea Nitrogen) 38 mg/dL (8.4-25.7); Calc. Creatinine Clearance 34 mL/min (70-130); Calcium 9.6 mg/dL (7.8-10.44); Carbon Dioxide 31 mmol/L (23-31); Cardiac Risk 2.8 (Less than 4.5); Chloride 94 mmol/L (98-107); Cholesterol 95 mg/dl (< 200 Desired); Estimated GFR-MDRD 41; Glucose 88 mg/dL (83-110); HDL Cholesterol 34 mg/dL (>60 Neg Risk); LDL Cholesterol, Calculated 47 mg/dL; Potassium 3.4 mmol/L (3.5-5.1); Sodium 136 mmol/L (136-145); Triglycerides 68 mg/dL (Less than 150)
[2018-02-12] MEDS ORDERED: Pantoprazole 40 MG VIAL IVP SCH (09:00)
[2018-02-12] MEDS: Lisinopril 2.5 MG TAB PO SCH (09:02)
[2018-02-12] MEDS: Cyanocobalamin (Vitamin B-12) 1,000 MCG TAB PO SCH (09:02)
[2018-02-12] MEDS: hydrALAZINE 25 MG TAB PO SCH ×3 (09:02→21:37)
[2018-02-12] MEDS: Finasteride 5 MG TAB PO SCH (09:02)
[2018-02-12] MEDS: Folic Acid 1 MG TAB PO SCH (09:03)
[2018-02-12] MEDS: Hydroxychloroquine Sulfate 200 MG TAB PO SCH (09:03)
--- NOTE | 2018-02-12 09:51 | CON ---
HISTORY: Mr. Fernando Montes is a 72-year-old white male that I initially evaluated in 08/2017 in the hospital. He was admitted with increased shortness of breath, which started at 4:00 a.m. in the morning. He also noted increased dyspnea on exertion while walking. He denies any nausea, vomiting, or chest discomfort. He did notice some wheezing. He came to the emergency room for further evaluation. He is usually followed at the [facility]. Echo revealed mild left atrial enlargement, mild left ventricular dysfunction with ejection fraction of 40% to 45%, evidence of diastolic dysfunction, aortic valvular fibrosis, moderate mitral regurgitation, mild to moderate tricuspid regurgitation, and mild pulmonic insufficiency. BNP was 3647.8. He had pleural effusions and pulmonary edema on chest x-ray. Initially, he wished to be evaluated at [facility]; however, his troponin increased to 0.428 and he had anterolateral ischemia on his EKG. It was also noted that he had a drop in his hemoglobin from 11.1 to 10.1 despite diuresis. He underwent cardiac catheterization on 09/13/2017. Left ventriculogram was not done due to his renal insufficiency. He was found to have a 70% to 80% mid LAD lesion, 50% proximal circumflex and 70% mid, 70% distal right coronary artery. He did underwent placement of bare metal stent, Rebel 3.0 x 32 mm in the LAD with reduction of both lesions to zero. He also underwent placement of bare metal stent, Rebel 3.0 x 28 and 3.5 x 28 in the distal and the mid RCA. Bare metal stent was placed due to finding of a drop in hemoglobin while he was being treated with heparin. Cardiac catheterization was also performed in [facility] room to save contrast. He returned for followup in the office on 10/12. It was felt that he needed to repeat echo in 3 months, so that he is going [facility] and see further follow up there. His cholesterol was elevated and he was changed from pravastatin 10 to simvastatin 40. He denies any chest discomfort. He continues to refrain from smoking since when he was admitted. [facility] doctor continued him on his clopidogrel even though he had bare metal stents. He was readmitted on 11/02/2017 with increased dyspnea and orthopnea, left-sided chest pain. He was diuresed. Echo revealed ejection fraction of 40% to 45%. He now is admitted with increased shortness of breath. He has some cough and chills, but did not have any fever. He came to the hospital and found to have very low hemoglobin and was admitted for further evaluation. He denies any chest discomfort. PAST MEDICAL AND SURGICAL HISTORY: Hypertension, hypercholesterolemia, renal insufficiency, history of agent orange exposure, rheumatoid arthritis and lupus operation, appendectomy and colon resection due to colon cancer and repair of ulnar nerve. MEDICATIONS: Albuterol p.r.n., aspirin 81 daily, vitamin B12 1000 daily, vitamin D2 50,000 units every 7 days, finasteride 5 mg daily, folic acid 1 mg daily, furosemide 20 mg b.i.d., hydralazine 50 t.i.d., Plaquenil 100 at bedtime , Plaquenil 200 daily, lisinopril 2.5 daily, metoprolol 100 mg b.i.d., simvastatin 40 mg at bedtime, tramadol 50 q.4 hours. ALLERGIES: PENICILLIN. SOCIAL HISTORY: He did smoke five cigarettes per day, but stopped at the time of stent placement in 09/2017. He does not drink. FAMILY HISTORY: Negative for coronary artery disease. REVIEW OF SYSTEMS: A 12-point review of systems are unremarkable. PHYSICAL EXAMINATION: VITAL SIGNS: Blood pressure 153/74, pulse of 74. HEENT: PERRL. NECK: Supple. CHEST: Reveals expiratory wheezing bilaterally. CARDIOVASCULAR: S1 and S2 are normal, without any S3, S4 or murmurs. ABDOMEN: Normal bowel sounds, without tenderness or organomegaly. EXTREMITIES: Revealed no clubbing, cyanosis, or edema. NEUROLOGIC: Grossly intact. SKIN: Warm and dry. LABORATORY DATA AND IMAGING: EKG revealed normal sinus rhythm with nonspecific ST and T-wave changes. Hemoglobin on admission was 7.4, hematocrit 22.7, sodium 138, potassium 3.3, chloride 96, carbon dioxide 31, BUN 30, creatinine 1.67, troponin I at 0.084, BNP 9971.4. IMPRESSION: 1. Severe anemia, probably GI related. 2. Placement of bare metal stents in the LAD and in the right coronary artery in 09/2017. These were bare metal stents and his clopidogrel may be discontinued permanently. 3. Chronic obstructive pulmonary disease exacerbation. 4. Chronic kidney disease. 5. Hypertension. 6. Hypercholesterolemia. 7. Former smoker. PLAN: Patient will be started on neb treatments. Echocardiogram will be repeated to reassess left ventricular function, especially with BNP of over 9000. Plavix will be permanently discontinued. He will undergo GI evaluation. MTDD
--- NOTE | 2018-02-12 10:55 | CON ---
DATE OF CONSULTATION: 02/11/2018 REFERRING PHYSICIAN: Dr. Pia Dorsey. REASON FOR CONSULTATION: Anemia, occult GI bleeding. HISTORY OF PRESENT ILLNESS: Mr. Fernando Montes is a very fragile looking 72-year-old male, h ospitalized because of acute shortness of breath and also has a history of passing some black stool. The patient has stool guaiac done, the stool guaiac came back positive for occult blood. The patien t received 2 units of packed RBCs on this admission. He is actually feeling better. He was also diu resed with IV Lasix. His symptoms markedly improved, but he is still short of breath at rest. The p atkirill has history of myocardial infarction in 08/2017 and was seen by Dr. Adilson Holguin. He tells me he has had 3 stent placement done by Dr. Holguin. He has been placed on Plavix and aspirin. Th e patient had anemia approximately 4-6 weeks. The patient was brought to [facility] in [place] for many years. He had a colonoscopy and EGD approximately 4 weeks ago in [place]. Both were told to be negative. The patient at that time had no history of any hematochezia or melena. No history of hem aturia, bleeding from the nose or gums. On this admission, the patient gives history of black stool and however needs some iron supplement. The stool guaiac came back positive for occult blood. The p atkirill denies abdominal pain, nausea, vomiting. No dysphagia or odynophagia. No family history of a [place] cancer. He also tells me that he has been eating very well over the last year also. He has poor appetite. He had lost fairly about 15-18 pounds. There is no history of fever, night sweats. He gordon s no relevant history. MEDICAL ILLNESSES: 1. CHF with ejection fraction of 40% to 45%. 2. Coronary artery disease, status post stent placement in 08/2017. 3. Hypertension. 4. Hyperlipidemia. 5. History of lupus. 6. Rheumatoid arthritis. 7. History of spinal compression fracture. 8. Chronic kidney disease. ALLERGIES: PENICILLIN. SOCIAL HISTORY: The patient is a former smoker. Does not drink alcohol. SURGERIES: 1. Coronary artery stent placement in 2017 2. Appendectomy. 3. Hemicolectomy. 4. 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 5. Repair of severed ulnar nerve. FAMILY HISTORY: No family history of heart disease or cancer. MEDICATIONS: 1. Albuterol inhaler. 2. Aspirin. 3. Plavix. 4. Vitamin B12. 5. Vitamin D. 6. Finasteride. 7. Folic acid. 8. Lasix 20 once a day. 9. Hydralazine. 10. Hydroxychloroquine. 11. Lisinopril. 12. Metoprolol. 13. Sublingual nitroglycerin p.r.n. 14. Simvastatin. 15. Tramadol. REVIEW OF SYSTEMS: Constitutional: History of weight loss. No history of fever, night sweats. He has been feeling weak and no energy over the last several months. 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 Respiratory system: History of coughing off and on, but no prior history of COPD. No history of hemoptysis. Cardiovascular system: Dyspnea and also orthopnea. No PND. No p alpitation. No chest pain. Gastrointestinal: No hematochezia, melena, no abdominal pain, nausea, v omiting, no dysphagia. Genitourinary: Unremarkable. Musculoskeletal: History of some arthralgias and back pain. Endocrine: Not known. Hematology: Not known. Psychiatric: Not known. PHYSICAL EXAMINATION: GENERAL: The patient is a very fragile looking male, he is short of breath. He is in no d istress. VITAL SIGNS: Temperature 98.3 Fahrenheit, pulse is 74, blood pressure is 153/74. HEENT: Conjunctivae clear. NECK: Supple. No adenitis or thyromegaly noted. CARDIOVASCULAR SYSTEM: First and second heart sounds normal. LUNGS: He does have occasional rhonchi and wheezing on deep expiration. ABDOMEN: Soft to palpate. Abdomen is nontender. There is no organomegaly or masses. EXTREMITIES: Reveal no edema. LABORATORY DATA: From yesterday, hemoglobin 7.4, after transfusion it came to 8.9; hematocrit 28.1; MCV is 102; platelet count is 143,000. Serum chemistries: Sodium 138, potassium 3.3, chloride 96, b icarbonate is 31, BUN is 30, creatinine 1.67, glucose 126, lactic acid is 2.3, calcium 9.8, bilirubin is 0.8, AST is 19, ALT 14, alkaline phosphatase 116, troponin 0.080. BNP 9971. Albumin is 4, prote in 7.3, lipase 17. CLINICAL IMPRESSION: 1. A 72-year-old male with acute dyspnea, anemia. The patient gives history of some dark stools. The stool guaiac is positive. The patient has negative EGD and colonoscopy 4 weeks ago at [facility] . It is possible the patient could have some . 2. Congestive heart failure. 3. Hypertension. 4. Hyperlipidemia. 5. Anemia. RECOMMENDATIONS: 1. Continue diuresis. 2. Dr. Holguin will see patient later on today. If the patient's clinical condition improves, poss ible EGD tomorrow.
[2018-02-12] MEDS ORDERED: Lidocaine 1% PF 5 ML VIAL ONE (11:30)
[2018-02-12] MEDS ORDERED: PROPOFOL 200 MG/20 ML VIAL ONE (11:30)
--- NOTE | 2018-02-12 13:44 | OP ---
DATE OF PROCEDURE: 02/12/2018 SURGEON: Sarah Herzog M.D. OPERATIVE PROCEDURE: Esophagogastroduodenoscopy. PREOPERATIVE DIAGNOSIS: A 72-year-old male with a history of melena and anemia. The patient is on Plavix and aspirin. The patient undergoing esophagogastroduodenoscopy. POSTOPERATIVE DIAGNOSIS: 1. Normal esophagus. 2. ulcer over the gastric body . PROCEDURE IN DETAIL: The patient was placed on his left lateral position and was given sedation by Anesthesia Department. A Pentax video gastroscope under direct vision passed down the oropharynx, the GE junction, into the stomach and subsequently into the descending duodenum. The stomach mucosa appears normal through the stomach_. The GE junction, no pathology seen. Retroflexion failed to show any fundus or cardia. Over the proximal gastric body the patient also revealed gastritis. No visible vessel or any active bleeding seen. The gastric antrum, the patient found to have a small ulceration. The ulcer is nonbleeding. Also, the mucosa was hyperemic over the gastric antrum. The duodenal bulb, descending duodenum, no pathology. The stomach was decompressed and the scope removed. RECOMMENDATIONS: 1. Continue Protonix 40 once a day. 2. Follow up H&H. MTDD
--- NOTE | 2018-02-12 15:52 | PDOC.PN ---
- Subjective Encounter Start Date: 02/12/18 Encounter Start Time: 10:20 Pt seen for followup re: anemia. Denies chest pain, shortness of breath, fevers or chills. - Objective MAR Reviewed: Yes Vital Signs & Weight: Vital Signs (12 hours) Temp Pulse Resp BP BP Pulse Ox 02/12/18 15:27 97.5 F L 74 18 145/61 H 84 L 02/12/18 15:15 55 L 02/12/18 12:49 55 L 18 98 02/12/18 12:45 97.6 F 59 L 147/58 H 100 02/12/18 09:02 62 02/12/18 08:59 97.9 F 62 24 H 98 02/12/18 07:20 97.9 F 62 24 H 150/51 H 98 02/12/18 06:46 69 16 98 Weight Admit Weight 132 lb 9.6 oz Weight 131 lb 4.8 oz I&O: 02/11/18 02/12/18 02/13/18 06:59 06:59 06:59 Intake Total 590 Output Total 2610 1000 Balance -2020 -1000 Result Diagrams: 02/12/18 04:42 02/12/18 04:42 Phys Exam - Physical Examination Constitutional: NAD HEENT: PERRLA, moist MMs, sclera anicteric, oral pharynx no lesions Neck: no nodes, no JVD, supple, full ROM Respiratory: no rales, no rhonchi, wheezing present Cardiovascular: RRR, no rub Gastrointestinal: soft, non-tender, no distention, positive bowel sounds Neurological: moves all 4 limbs Psychiatric: normal affect Dx/Plan (1) Anemia Code(s): D64.9 - ANEMIA, UNSPECIFIED Status: Acute Comment: For scope today , Plavix has been discontinued by cardiology service (2) Acute on chronic systolic heart failure Code(s): I50.23 - ACUTE ON CHRONIC SYSTOLIC (CONGESTIVE) HEART FAILURE Status : Acute Comment: Continue IV diuretics (3) BPH (benign prostatic hyperplasia) Code(s): N40.0 - BENIGN PROSTATIC HYPERPLASIA WITHOUT LOWER URINRY TRACT SYMP Status: Chronic Comment: stable (4) CAD (coronary artery disease) Code(s): I25.10 - ATHSCL HEART DISEASE OF [place] CORONARY ARTERY W/O ANG PCTRS Status: Chronic Comment: stable (5) HLD (hyperlipidemia) Code(s): E78.5 - HYPERLIPIDEMIA, UNSPECIFIED Status: Chronic Comment: continue statin (6) HTN (hypertension) Code(s): I10 - ESSENTIAL (PRIMARY) HYPERTENSION Status: Chronic Comment: Monitor vital signs, titrate antihypertensives as needed (7) Lupus Code(s): L93.0 - DISCOID LUPUS ERYTHEMATOSUS Status: Chronic (8) Rheumatoid arthritis Code(s): M06.9 - RHEUMATOID ARTHRITIS, UNSPECIFIED Status: Chronic Comment: stable - Plan plan discussed w/ family, 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 Review of Systems - Review of Systems Constitutional: negative: fever, chills, sweats, weakness, malaise Respiratory: SOB with Excertion. negative: Cough, Shortness of Breath, Hemoptysis, Pleuritic Pain, Wheezing Cardiovascular: negative: chest pain, palpitations, orthopnea, paroxysmal nocturnal dyspnea, edema, light headedness Gastrointestinal: negative: Nausea, Vomiting, Abdominal Pain, Diarrhea, Constipation, Melena, Hematochezia Genitourinary: negative: Dysuria, Frequency, Incontinence, Hematuria, Retention - Medications/Allergies Allergies/Adverse Reactions: Allergies Allergy/AdvReac Type Severity Reaction Status Date / Time Penicillins Allergy Verified 09/11/17 04:55 Medications: Current Medications Acetaminophen (Tylenol) 650 mg PO Q4H PRN PRN Reason: Headache/Fever or Pain Al Hydroxide/Mg Hydroxide (Maalox) 30 ml PO Q6H PRN PRN Reason: Heartburn or Indigestion Albuterol Sulfate (Proventil Hfa) 2 puff INH QID PRN PRN Reason: SOB &/or Wheezing Albuterol/Ipratropium (Duoneb) 3 ml NEB [id number] [facility] Last Admin: 02/12/18 12:49 Dose: 3 ml Atorvastatin Calcium (Lipitor) 20 mg PO HS [facility] Last Admin: 02/11/18 20:55 Dose: 20 mg Benzonatate (Tessalon) 100 mg PO Q4H PRN PRN Reason: Cough Bisacodyl (Dulcolax) 10 mg PO DAILYPRN PRN PRN Reason: Constipation Calcium Carbonate (Tums) 1,000 mg PO Q4H PRN PRN Reason: Heartburn or Indigestion Clobetasol Propionate (Temovate 0.05% Cream) 0 gm TOP DAILY [facility] Last Admin: 02/12/18 14:23 Dose: Not Given Clonidine (Catapres) 0.1 mg PO Q4H PRN PRN Reason: Systolic BP > 160 Cyanocobalamin (Vitamin B-12) 1,000 mcg PO DAILY [facility] Last Admin: 02/12/18 09:02 Dose: 1,000 mcg Ergocalciferol (Drisdol) 1.25 mg PO Q7DAYS [facility] Last Admin: 02/11/18 12:27 Dose: 1.25 mg Finasteride (Proscar) 5 mg PO DAILY [facility] Last Admin: 02/12/18 09:02 Dose: 5 mg Folic Acid (Folvite) 1 mg PO DAILY [facility] Last Admin: 02/12/18 09:03 Dose: 1 mg Furosemide (Lasix) 40 mg SLOW IVP 0600,1400 [facility] Last Admin: 02/12/18 15:15 Dose: 40 mg Guaifenesin (Robitussin Sf) 200 mg PO Q4H PRN PRN Reason: Cough Hydralazine HCl (Apresoline) 10 mg SLOW IVP Q4H PRN PRN Reason: Systolic BP > 170 Hydralazine HCl (Apresoline) 50 mg PO TID [facility] Last Admin: 02/12/18 15:15 Dose: 50 mg Hydroxychloroquine Sulfate (Plaquenil) 300 mg PO DAILY [facility] Last Admin: 02/12/18 09:03 Dose: 300 mg Lisinopril (Zestril) 2.5 mg PO DAILY [facility] Last Admin: 02/12/18 09:02 Dose: 2.5 mg Loratadine (Claritin) 10 mg PO DAILYPRN PRN PRN Reason: Sinus Symptoms Lorazepam (Ativan) 1 mg PO Q4H PRN PRN Reason: Anxiety/Agitation Metoprolol Tartrate (Lopressor) 100 mg PO BID [facility] Last Admin: 02/12/18 05:22 Dose: 100 mg Nitroglycerin (Nitrostat) 0.4 mg SL Q5MIN PRN PRN Reason: Chest Pain Nitroglycerin (Nitrostat) 0.4 mg SL Q5MIN [facility] Ondansetron HCl (Zofran) 4 mg IVP Q6H PRN PRN Reason: Nausea/Vomiting Pantoprazole Sodium (Protonix) 40 mg PO DAILY [facility] Last Admin: 02/12/18 09:02 Dose: 40 mg Senna (Senokot) 2 tab PO HSPRN PRN PRN Reason: Constipation Tramadol HCl (Ultram) 50 mg PO Q4H PRN PRN Reason: Moderate Pain (4-6) Last Admin: 02/12/18 15:18 Dose: 50 mg
[2018-02-12] MEDS: Atorvastatin Calcium 20 MG TAB PO SCH (21:36)
[2018-02-13] MEDS: traMADol HCl 50 MG TAB PO PRN ×2 (05:59→13:31)
[2018-02-13] MEDS: Furosemide 40 MG/4 ML VIAL SLOW IVP SCH ×2 (06:00→13:33)
[2018-02-13] MEDS: Cyanocobalamin (Vitamin B-12) 1,000 MCG TAB PO SCH (09:17)
[2018-02-13] MEDS: Folic Acid 1 MG TAB PO SCH (09:17)
[2018-02-13] MEDS: Lisinopril 2.5 MG TAB PO SCH (09:18)
[2018-02-13] MEDS: Metoprolol Tartrate 50 MG TAB PO SCH (09:18)
[2018-02-13] MEDS: Hydroxychloroquine Sulfate 200 MG TAB PO SCH (09:19)
[2018-02-13] MEDS: hydrALAZINE 25 MG TAB PO SCH ×2 (09:19→15:33)
[2018-02-13] MEDS: Finasteride 5 MG TAB PO SCH (09:20)
[2018-02-13 11:59] LABS: Anion Gap 11 mmol/L (10-20); BUN (Urea Nitrogen) 42 mg/dL (8.4-25.7); Calc. Creatinine Clearance 32 mL/min (70-130); Calcium 9.3 mg/dL (7.8-10.44); Carbon Dioxide 35 mmol/L (23-31); Chloride 92 mmol/L (98-107); Estimated GFR-MDRD 39; Glucose 96 mg/dL (83-110); Magnesium 1.9 mg/dL (1.6-2.6); Potassium 3.1 mmol/L (3.5-5.1); Sodium 135 mmol/L (136-145)
[2018-02-13] MEDS ORDERED: Potassium Chloride 20 MEQ TAB PO SCH (12:45)
--- NOTE | 2018-02-13 13:27 | PDOC.PN ---
- Subjective Encounter Start Date: 02/13/18 Encounter Start Time: 13:25 Subjective: feels better.eager to go home. -: " I feel 1000% better" - Objective MAR Reviewed: Yes Vital Signs & Weight: Vital Signs (12 hours) Temp Pulse Resp BP BP Pulse Ox 02/13/18 13:09 59 L 16 93 L 02/13/18 12:32 93 L 02/13/18 11:57 98.2 F 61 16 123/51 L 93 L 02/13/18 09:19 63 158/66 H 02/13/18 09:18 63 02/13/18 08:59 98.3 F 63 18 97 02/13/18 07:10 98.3 F 63 18 158/66 H 97 02/13/18 06:43 100 02/13/18 06:41 60 16 100 02/13/18 04:00 98.2 F 64 20 135/68 94 L 02/13/18 02:07 100 Weight Admit Weight 132 lb 9.6 oz Weight 129 lb I&O: 02/12/18 02/13/18 02/14/18 06:59 06:59 06:59 Intake Total 590 480 Output Total 2610 1400 Balance -2019 Result Diagrams: 02/12/18 04:42 02/13/18 11:28 Additional Labs: Laboratory Tests 11/03/17 11/04/17 11/04/17 04:50 06:42 15:24 Hgb 8.8 L Creatinine 1.91 H 1.90 H Lactic Acid Troponin I B-Natriuretic Peptide Triglycerides Cholesterol LDL Cholesterol, Calc HDL Cholesterol 02/11/18 02/11/18 02/11/18 00:39 00:39 00:39 Hgb 7.4 L Creatinine Lactic Acid 2.3 H Troponin I 0.080 H B-Natriuretic Peptide Triglycerides Cholesterol LDL Cholesterol, Calc HDL Cholesterol 02/11/18 02/11/18 02/11/18 00:39 00:39 03:45 Hgb Creatinine 1.67 H Lactic Acid Troponin I 0.084 H B-Natriuretic Peptide 9971.4 H Triglycerides Cholesterol LDL Cholesterol, Calc HDL Cholesterol 02/11/18 02/11/18 02/11/18 07:11 07:11 07:11 Hgb 8.9 L Creatinine Lactic Acid 2.3 H Troponin I 0.071 H B-Natriuretic Peptide Triglycerides Cholesterol LDL Cholesterol, Calc HDL Cholesterol 02/12/18 02/12/18 02/13/18 04:42 04:42 11:28 Hgb 9.8 L Creatinine 1.65 H 1.75 H Lactic Acid Troponin I B-Natriuretic Peptide Triglycerides 68 Cholesterol 95 LDL Cholesterol, Calc 47 HDL Cholesterol 34 Phys Exam - Physical Examination Constitutional: NAD HEENT: PERRLA, moist MMs, sclera anicteric, TM's clear, oral pharynx no lesions , 2+ tonsils Neck: no nodes, no JVD, supple, full ROM rhonchi.reduced at left base Cardiovascular: RRR, no significant murmur Gastrointestinal: soft, non-tender, no distention, positive bowel sounds Musculoskeletal: no edema, pulses present Neurological: non-focal, normal sensation, moves all 4 limbs Psychiatric: normal affect, A&O x 3 Skin: no rash Dx/Plan (1) Acute on chronic diastolic CHF (congestive heart failure) Code(s): I50.33 - ACUTE ON CHRONIC DIASTOLIC (CONGESTIVE) HEART FAILURE Status : Acute (2) Non bleeding gastric ulcer Status: Acute (3) Anemia Code(s): D64.9 - ANEMIA, UNSPECIFIED Status: Acute Comment: For scope today , Plavix has been discontinued by cardiology service (4) BPH (benign prostatic hyperplasia) Code(s): N40.0 - BENIGN PROSTATIC HYPERPLASIA WITHOUT LOWER URINRY TRACT SYMP Status: Chronic Comment: stable (5) CAD (coronary artery disease) Code(s): I25.10 - ATHSCL HEART DISEASE OF [place] CORONARY ARTERY W/O ANG PCTRS Status: Chronic Comment: stable (6) HLD (hyperlipidemia) Code(s): E78.5 - HYPERLIPIDEMIA, UNSPECIFIED Status: Chronic Comment: continue statin (7) HTN (hypertension) Code(s): I10 - ESSENTIAL (PRIMARY) HYPERTENSION Status: Chronic Comment: Monitor vital signs, titrate antihypertensives as needed (8) Lupus Code(s): L93.0 - DISCOID LUPUS ERYTHEMATOSUS Status: Chronic (9) Rheumatoid arthritis Code(s): M06.9 - RHEUMATOID ARTHRITIS, UNSPECIFIED Status: Chronic Comment: stable (10) Tobacco abuse Code(s): Z72.0 - TOBACCO USE Status: Chronic (11) Hypokalemia Code(s): E87.6 - HYPOKALEMIA Status: Acute (12) COPD (chronic obstructive pulmonary disease) Status: Chronic - Plan plan discussed w/ family, PT/OT, respiratory therapy, out of bed/ambulate, DVT proph w/SCDs cont IV lasix,duoneb.Dyspnea much improved.change to PO lasix -: cardology following.cont cardioprudent meds as below. -: S/P EGD-cont PPI.no active bleeding.H/H stable.Appreciate GI recs -: renal Fx stable.monitor. -: DC home when OK w cardiology.ECHO pending * . Review of Systems - Review of Systems Constitutional: negative: fever, chills, sweats, weakness, malaise, other ENT: negative: Ear Pain, Ear Discharge, Nose Pain, Nose Discharge, Nose Congestion, Mouth Pain, Mouth Swelling, Throat Pain, Throat Swelling, Other Respiratory: negative: Cough, Dry, Shortness of Breath, Hemoptysis, SOB with Excertion, Pleuritic Pain, Sputum, Wheezing Cardiovascular: negative: chest pain, palpitations, orthopnea, paroxysmal nocturnal dyspnea, edema, light headedness, other Gastrointestinal: negative: Nausea, Vomiting, Abdominal Pain, Diarrhea, Constipation, Melena, Hematochezia, Other Genitourinary: negative: Dysuria, Frequency, Incontinence, Hematuria, Retention , Other Musculoskeletal: negative: Neck Pain, Shoulder Pain, Arm Pain, Back Pain, Hand Pain, Leg Pain, Foot Pain, Other Skin: negative: Rash, Lesions, John, Bruising, Other Neurological: negative: Weakness, Numbness, Incoordination, Change in Speech, Confusion, Seizures, Other - Medications/Allergies Allergies/Adverse Reactions: Allergies Allergy/AdvReac Type Severity Reaction Status Date / Time Penicillins Allergy Verified 09/11/17 04:55 Medications: Current Medications Acetaminophen (Tylenol) 650 mg PO Q4H PRN PRN Reason: Headache/Fever or Pain Al Hydroxide/Mg Hydroxide (Maalox) 30 ml PO Q6H PRN PRN Reason: Heartburn or Indigestion Albuterol Sulfate (Proventil Hfa) 2 puff INH QID PRN PRN Reason: SOB &/or Wheezing Albuterol/Ipratropium (Duoneb) 3 ml NEB [id number] [facility] Last Admin: 02/13/18 13:09 Dose: 3 ml Atorvastatin Calcium (Lipitor) 20 mg PO HS [facility] Last Admin: 02/12/18 21:36 Dose: 20 mg Benzonatate (Tessalon) 100 mg PO Q4H PRN PRN Reason: Cough Bisacodyl (Dulcolax) 10 mg PO DAILYPRN PRN PRN Reason: Constipation Calcium Carbonate (Tums) 1,000 mg PO Q4H PRN PRN Reason: Heartburn or Indigestion Clobetasol Propionate (Temovate 0.05% Cream) 0 gm TOP DAILY [facility] Last Admin: 02/13/18 09:17 Dose: 1 applic Clonidine (Catapres) 0.1 mg PO Q4H PRN PRN Reason: Systolic BP > 160 Cyanocobalamin (Vitamin B-12) 1,000 mcg PO DAILY [facility] Last Admin: 02/13/18 09:17 Dose: 1,000 mcg Ergocalciferol (Drisdol) 1.25 mg PO Q7DAYS [facility] Last Admin: 02/11/18 12:27 Dose: 1.25 mg Finasteride (Proscar) 5 mg PO DAILY [facility] Last Admin: 02/13/18 09:20 Dose: 5 mg Folic Acid (Folvite) 1 mg PO DAILY [facility] Last Admin: 02/13/18 09:17 Dose: 1 mg Furosemide (Lasix) 40 mg SLOW IVP 0600,1400 [facility] Last Admin: 02/13/18 06:00 Dose: Not Given Guaifenesin (Robitussin Sf) 200 mg PO Q4H PRN PRN Reason: Cough Hydralazine HCl (Apresoline) 10 mg SLOW IVP Q4H PRN PRN Reason: Systolic BP > 170 Hydralazine HCl (Apresoline) 50 mg PO TID [facility] Last Admin: 02/13/18 09:19 Dose: 50 mg Hydroxychloroquine Sulfate (Plaquenil) 300 mg PO DAILY [facility] Last Admin: 02/13/18 09:19 Dose: 300 mg Lisinopril (Zestril) 2.5 mg PO DAILY [facility] Last Admin: 02/13/18 09:18 Dose: 2.5 mg Loratadine (Claritin) 10 mg PO DAILYPRN PRN PRN Reason: Sinus Symptoms Lorazepam (Ativan) 1 mg PO Q4H PRN PRN Reason: Anxiety/Agitation Metoprolol Tartrate (Lopressor) 100 mg PO BID [facility] Last Admin: 02/13/18 09:18 Dose: 100 mg Nitroglycerin (Nitrostat) 0.4 mg SL Q5MIN PRN PRN Reason: Chest Pain Nitroglycerin (Nitrostat) 0.4 mg SL Q5MIN [facility] Ondansetron HCl (Zofran) 4 mg IVP Q6H PRN PRN Reason: Nausea/Vomiting Pantoprazole Sodium (Protonix) 40 mg PO DAILY [facility] Last Admin: 02/13/18 09:17 Dose: 40 mg Potassium Chloride (K-Dur) 40 meq PO 1245 [facility] Stop: 02/13/18 15:00 Last Admin: 02/13/18 12:58 Dose: 40 meq Senna (Senokot) 2 tab PO HSPRN PRN PRN Reason: Constipation Tramadol HCl (Ultram) 50 mg PO Q4H PRN PRN Reason: Moderate Pain (4-6) Last Admin: 02/13/18 05:59 Dose: 50 mg
[2018-02-13 15:34] VITALS: TEMP 98.5
--- NOTE | 2018-02-13 16:47 | PRG ---
DATE OF SERVICE: 02/13/2018 SUBJECTIVE: This is a 72-year-old hospitalized with acute CHF and also anemia. He has a h istory of melena stool. An EGD done yesterday, which revealed two gastric ulcers. There are no acti ve bleeding seen. He has done well since admission after diuresis. His Plavix is on hold for the ti me being. He has had no stool. His blood count is stable around 9.2. He has no abdominal pain. Hi s breathing is markedly better and he does not appear to be any short of breath. OBJECTIVE: VITAL SIGNS: He is afebrile. Pulse is 59 and blood pressure is 123/51. CARDIOVASCULAR SYSTEM: First and second heart sounds normal. LUNGS: Clear to auscultation. ABDOMEN: Soft to palpate. No organomegaly. No tenderness. No mass. CLINICAL IMPRESSION: Gastric ulcer. RECOMMENDATIONS: 1. Continue PPI. 2. We will sign off from today and if there is any problem, please call me back.
--- NOTE | 2018-02-14 02:32 | DIS ---
DATE OF ADMISSION: 02/11/2018 DATE OF DISCHARGE: 02/13/2018 PRIMARY CARE PHYSICIAN: Murray MOHAMUD. DISCHARGE DIAGNOSES: 1. Acute on chronic systolic congestive heart failure. 2. Acute on chronic diastolic congestive heart failure. 3. Nonbleeding gastric ulcer. 4. Chronic anemia. 5. Benign prostatic hypertrophy. 6. Coronary artery disease. 7. Dyslipidemia. 8. Hypertension. 9. History of lupus. 10. Rheumatoid arthritis. 11. Tobacco abuse. 12. Chronic obstructive pulmonary disease. DISCHARGE MEDICATIONS: Resume home medications as per H&P, Plaquenil 100 mg at bedtime and 200 mg in the morning; vitamin B12 daily, aspirin 81 mg daily, hydralazine 50 t.i.d., Zocor 40 mg daily, Nitro stat sublingual as needed, Lopressor 100 mg p.o. b.i.d., lisinopril 2.5 mg daily, Lasix 20 mg p.o. b. i.d., folic acid 1 mg daily, finasteride 5 mg daily, vitamin D2 daily, Protonix 40 mg daily. NEW MEDICATION: Nebulizer accessories as needed. CONSULTATIONS IN-HOUSE: 1. Cardiology, Dr. Holguin. 2. Gastroenterology, Dr. Herzog. PROCEDURES DONE IN THE HOSPITAL: Include EGD which shows a small ulceration in the gastric antrum wi thout any bleeding. Transthoracic echocardiogram which shows EF of 40-45% and severe tricuspid regur gitation which is almost the same as his previous echo. HISTORY OF PRESENTING ILLNESS AND HOSPITAL COURSE: Mr. Montes is a 72-year-old male with known hist ory of diastolic congestive heart failure, coronary artery disease, status post bare metal stent in , hypertension, dyslipidemia, and lupus who presented to the emergency room with complaints of worsening shortness of breath. He was found to be in acute on chronic diastolic congestive heart james lure. He also complained of melena and his FOBT was positive. His H&H on presentation was stable. He was on aspirin and Plavix which was held and GI and Cardiology was consulted. He underwent EGD which showed small gastric ulcer without bleeding. Cardiology saw the patient and s topped his Plavix permanently. His H&H remained stable. He did receive 2 units of packed RBC transf usion in the emergency room. He was continued on IV diuretics. An echo was done with the above-ment ioned results. Eventually, he was cleared by both GI and Cardiology for discharge when he was back to his baseline a nd was eager to go home. He was started on Protonix. It was also thought that his dyspnea also has a component of COPD and he was given nebulizers in the hospital and was discharged on same p.r.n. bas is. He was seen and examined prior to discharge. Please see Hospitalist progress note from today's date for further detail including [id number] interaction. Total time spent in the discharge of this patient 32 minutes.
[2018-02-14 12:39] VITALS: BP 112/42
--- NOTE | 2018-02-18 16:09 | EKG ---
Test Reason : Blood Pressure : / mmHG Vent. Rate : 074 BPM Atrial Rate : 074 BPM P-R Int : 172 ms QRS Dur : 076 ms QT Int : 352 ms P-R-T Axes : 024 -30 244 degrees QTc Int : 390 ms Sinus rhythm with Premature atrial complexes Left axis deviation Moderate voltage criteria for LVH, may be normal variant Nonspecific ST and T wave abnormality No STEMI Abnormal ECG Tremor artifact Confirmed by NEVAEH Bazzi, FLORENTIN ([id number]), proposal editor REYMUNDO CORDON ([id number]) on 02/18/2018 4:08:49 PM Referred By: Confirmed By:FLORENTIN HERRING M.D.
== END 2018-02-13 17:34 | disposition home or self-care (01) | DRG 291 ==
LOC: ERS 00:05 → 2SE 02:14
PROVIDERS: ADMIT Internal Medicine; ATTEND Internal Medicine
PROC: 0DJ08ZZ Inspection of Upper Intestinal Tract, Via Natural or Artificial Opening Endoscopic (ICD-10-PCS; principal; 2018-02-12)
PROC: 30233N1 Transfusion of Nonautologous Red Blood Cells into Peripheral Vein, Percutaneous Approach (ICD-10-PCS; 2018-02-12)
DX: I13.0 Hypertensive heart and chronic kidney disease with heart failure and stage 1 through stage 4 chronic kidney disease, or unspecified chronic kidney disease (principal); I50.43 Acute on chronic combined systolic (congestive) and diastolic (congestive) heart failure; K92.1 Melena; D62 Acute posthemorrhagic anemia; M06.9 Rheumatoid arthritis, unspecified; I07.1 Rheumatic tricuspid insufficiency; I25.5 Ischemic cardiomyopathy; J44.1 Chronic obstructive pulmonary disease with (acute) exacerbation; I25.10 Atherosclerotic heart disease of native coronary artery without angina pectoris; N18.3 Chronic kidney disease, stage 3 (moderate); Z79.01 Long term (current) use of anticoagulants; Z79.82 Long term (current) use of aspirin; Z95.5 Presence of coronary angioplasty implant and graft; Z88.0 Allergy status to penicillin; Z87.891 Personal history of nicotine dependence; Z77.098 Contact with and (suspected) exposure to other hazardous, chiefly nonmedicinal, chemicals; K29.70 Gastritis, unspecified, without bleeding; K25.9 Gastric ulcer, unspecified as acute or chronic, without hemorrhage or perforation; N40.0 Benign prostatic hyperplasia without lower urinary tract symptoms; I25.2 Old myocardial infarction; Z79.51 Long term (current) use of inhaled steroids; Z85.038 Personal history of other malignant neoplasm of large intestine; Z90.49 Acquired absence of other specified parts of digestive tract; E78.00 Pure hypercholesterolemia, unspecified; L93.0 Discoid lupus erythematosus; E87.6 Hypokalemia
CPT/HCPCS: 36415; 36430; 71045; 80048; 80053; 80061; 81003; 82274; 82553; 83605; 83690; 83735; 83880; 84484; 85025; 86850; 86900; 86901; 93005; 93306; 93798; 94640; 96365; 96375; 96376; C9113; G8978-GP-CK; G8979-GP-CK; G8980-GP-CK; J1940; J2001; J2704; J3480; J7050; J7620; P9016

== ENCOUNTER 2018-08-04 08:11 | Emergency (ER) | payer MEDICARE ==
[2018-08-04 10:32] LABS: #Lymphocytes 0.6 thou/uL (1.20-3.40); #Monocytes 0.6 thou/uL (0.11-0.59); %Basophils 0.3 % (0.0-1.0); %Eosinophils 0.1 % (0.0-10.0); %Lymphocytes 10.9 % (21.0-51.0); %Monocytes 11.5 % (0.0-10.0); %Neutrophils 77.2 % (42.0-75.0); Hemoglobin 8.8 g/dL (14.0-18.0); Mean Corpuscular HGB CONC 31.4 g/dL (32.0-36.0); Mean Platelet Volume 10.2 fL (7.4-10.4); Platelet Count 120 thou/uL (130-400); RBC Distribution Width 13.9 % (11.5-14.5); Red Blood Cell (RBC) Count 2.75 mill/uL (4.70-6.10); White Blood Cell (WBC) Count 5.2 thou/uL (4.8-10.8)
[2018-08-04 10:51] LABS: Albumin 3.7 g/dL (3.4-4.8); Anion Gap 13 mmol/L (10-20); BUN (Urea Nitrogen) 36 mg/dL (8.4-25.7); Bilirubin, Total 0.7 mg/dL (0.2-1.2); Calc. Creatinine Clearance 0 mL/min (70-130); Calcium 9.2 mg/dL (7.8-10.44); Carbon Dioxide 29 mmol/L (23-31); Chloride 96 mmol/L (98-107); Estimated GFR-MDRD 31; Glucose 87 mg/dL (83-110); Potassium 3.8 mmol/L (3.5-5.1); Protein, Total 7.6 g/dL (5.8-8.1); Sodium 134 mmol/L (136-145)
[2018-08-04 10:52] LABS: ALT (SGPT) 18 U/L (8-55); AST (SGOT) 27 U/L (5-34); Alkaline Phosphatase 133 U/L (40-150); Globulin 3.9 g/dL (2.4-3.5)
[2018-08-04 10:56] LABS: CKMB 4.3 ng/mL (0-6.6); Troponin I 0.075 ng/mL (< 0.028)
--- NOTE | 2018-08-04 12:16 | RAD ---
SINGLE VIEW OF THE CHEST: COMPARISON: 02/11/18. HISTORY: Fall with chest pain and left thigh pain. FINDINGS: A single view of the chest shows an enlarged cardiomediastinal silhouette. Atherosclerotic calcifica tions were seen in the aorta. There was a small right pleural effusion. IMPRESSION: 1. Small right pleural effusion. 2. Cardiomegaly. POS: [facility]
--- NOTE | 2018-08-04 13:02 | RAD ---
TWO VIEWS LEFT HIP: HISTORY: Left thigh muscle causing a fall with pain in the left hip. FINDINGS: Two views of the left hip show no evidence of fracture or dislocation of the proximal femur. No dege nerative change is seen in the left hip joint. There is a possible fracture of the left superior and inferior pubic rami. IMPRESSION: Possible fracture of the left superior and inferior pubic rami. A CT of the pelvis may be necessary for definitive characterization. POS: [facility]
--- NOTE | 2018-08-04 13:03 | RAD ---
SINGLE VIEW OF THE PELVIS: HISTORY: Left thigh muscle pull causing him to fall on the knees and elbows. Left hip pain. FINDINGS: A single view of the pelvis shows a slightly abnormal appearance of the left superior and inferior pu bic rami which could represent fractures in this location. No fracture of either hip is seen. No de generative changes are seen in the hip. IMPRESSION: Possible left superior and inferior pubic rami fractures. A CT of the pelvis may be necessary for mo re definitive characterization. POS: [facility]
== END 2018-08-04 13:01 | disposition home or self-care (01) ==
LOC: ERS 08:11
DX: S32.592A Other specified fracture of left pubis, initial encounter for closed fracture (principal); I25.2 Old myocardial infarction; E78.5 Hyperlipidemia, unspecified; Z87.891 Personal history of nicotine dependence; Z79.899 Other long term (current) drug therapy; Z79.82 Long term (current) use of aspirin; W19.XXXA Unspecified fall, initial encounter
CPT/HCPCS: 36415; 71045; 72170; 80053; 82553; 84484; 85025; 93005

== ENCOUNTER 2018-09-04 13:55 | Emergency (ER) | payer MEDICARE ==
[2018-09-04 15:31] LABS: Bilirubin Negative (Negative); Blood, Urine Negative (Negative); Clarity CLEAR (Clear); Glucose, Urine (Dipstick) Negative (Negative); Leukocyte Negative (Negative); Nitrite Negative (Negative); Protein, Urine (Dipstick) Negative (Neg-Trace); Specific Gravity, Urine 1.011 (1.002-1.036); pH, Urine 5.5 (5.0-9.0)
[2018-09-04 16:07] LABS: Hemoglobin 10.4 g/dL (14.0-18.0); Mean Corpuscular HGB CONC 30.9 g/dL (32.0-36.0); Mean Corpuscular Hemoglobin 31.7 pg (27.0-31.0); Mean Platelet Volume 9.5 fL (7.4-10.4); Platelet Count 171 thou/uL (130-400); RBC Distribution Width 15.4 % (11.5-14.5); Red Blood Cell (RBC) Count 3.27 mill/uL (4.70-6.10); White Blood Cell (WBC) Count 7.9 thou/uL (4.8-10.8)
[2018-09-04 16:26] LABS: ALT (SGPT) 138 U/L (8-55); AST (SGOT) 150 U/L (5-34); Albumin 3.5 g/dL (3.4-4.8); Alkaline Phosphatase 191 U/L (40-150); Anion Gap 18 mmol/L (10-20); Anisocytosis SLIGHT = 6-15 cells (100X) (0-5/hpf); BUN (Urea Nitrogen) 54 mg/dL (8.4-25.7); Band 1 % (5-11); Bilirubin, Total 1.2 mg/dL (0.2-1.2); CK (CPK) 334 U/L (30-200); Calc. Creatinine Clearance 0 mL/min (70-130); Calcium 9.4 mg/dL (7.8-10.44); Carbon Dioxide 28 mmol/L (23-31); Chloride 91 mmol/L (98-107); Estimated GFR-MDRD 30; Globulin 3.8 g/dL (2.4-3.5); Glucose 93 mg/dL (83-110); Hypochromia SLIGHT = 6-15 cells (100X) (0-5/hpf); Lymphocytes 4 % (21-51); MDiff Complete? YES; Monocytes 3 % (0-10); Neutrophil 92 % (42-75); Nucleated RBC 1 % (0); PLT Morphology Comment Appears Adequate; Potassium 3.7 mmol/L (3.5-5.1); Protein, Total 7.3 g/dL (5.8-8.1); Sodium 133 mmol/L (136-145)
[2018-09-04 16:38] LABS: CKMB 9.2 ng/mL (0-6.6)
--- NOTE | 2018-09-04 17:28 | RAD ---
UPRIGHT PORTABLE CHEST ONE VIEW: 09/04/18 HISTORY: 72-year-old male with history of bilateral leg weakness. COMPARISON: 08/04/18. FINDINGS: Cardiomegaly with some bilateral vascular congestion and right pleural effusion with little change fr om the prior study. No significant new process. IMPRESSION: Cardiomegaly with mild bilateral vascular congestion and right pleural effusion showing little change from prior study. No evidence for pneumonia. POS: [facility]
== END 2018-09-04 17:19 | disposition home or self-care (01) ==
LOC: ERS 13:55
DX: R53.1 Weakness (principal); I12.9 Hypertensive chronic kidney disease with stage 1 through stage 4 chronic kidney disease, or unspecified chronic kidney disease; N18.9 Chronic kidney disease, unspecified; I25.2 Old myocardial infarction; E78.5 Hyperlipidemia, unspecified; Z87.891 Personal history of nicotine dependence; Z79.899 Other long term (current) drug therapy; Z79.82 Long term (current) use of aspirin
CPT/HCPCS: 36415; 71045; 80053; 81003; 82550; 82553; 84484; 85025; 93005

== ENCOUNTER 2018-09-08 06:32 | Inpatient (IN) | payer MEDICARE ==
[2018-09-08 07:38] LABS: #Monocytes 0.9 thou/uL (0.11-0.59); #Neutrophils 7.5 thou/uL (1.40-6.50); %Basophils 0.2 % (0.0-1.0); %Eosinophils 0.1 % (0.0-10.0); %Lymphocytes 10.1 % (21.0-51.0); %Monocytes 9.3 % (0.0-10.0); %Neutrophils 80.4 % (42.0-75.0); Hemoglobin 11.1 g/dL (14.0-18.0); Mean Corpuscular HGB CONC 31.6 g/dL (32.0-36.0); Mean Corpuscular Hemoglobin 31.9 pg (27.0-31.0); Mean Platelet Volume 9.5 fL (7.4-10.4); Platelet Count 151 thou/uL (130-400); RBC Distribution Width 14.8 % (11.5-14.5); Red Blood Cell (RBC) Count 3.46 mill/uL (4.70-6.10); White Blood Cell (WBC) Count 9.4 thou/uL (4.8-10.8)
[2018-09-08 07:53] LABS: Bilirubin Negative (Negative); Blood, Urine Negative (Negative); Clarity CLEAR (Clear); Glucose, Urine (Dipstick) Negative (Negative); Leukocyte Negative (Negative); Nitrite Negative (Negative); Protein, Urine (Dipstick) Negative (Neg-Trace); pH, Urine 5.5 (5.0-9.0)
[2018-09-08 07:56] LABS: ALT (SGPT) 110 U/L (8-55); AST (SGOT) 72 U/L (5-34); Albumin 3.6 g/dL (3.4-4.8); Alkaline Phosphatase 178 U/L (40-150); Anion Gap 18 mmol/L (10-20); BUN (Urea Nitrogen) 56 mg/dL (8.4-25.7); Bilirubin, Total 1.6 mg/dL (0.2-1.2); CK (CPK) 401 U/L (30-200); Calc. Creatinine Clearance 0 mL/min (70-130); Calcium 9.7 mg/dL (7.8-10.44); Carbon Dioxide 30 mmol/L (23-31); Chloride 89 mmol/L (98-107); Estimated GFR-MDRD 29; Glucose 77 mg/dL (83-110); Lipase 14 U/L (8-78); Potassium 3.5 mmol/L (3.5-5.1); Protein, Total 7.6 g/dL (5.8-8.1); Sodium 133 mmol/L (136-145)
[2018-09-08 07:58] LABS: Troponin I 0.156 ng/mL (< 0.028)
[2018-09-08 08:03] LABS: CKMB 12.1 ng/mL (0-6.6)
[2018-09-08] MEDS ORDERED: Furosemide 40 MG/4 ML VIAL ONE (10:52)
[2018-09-08] MEDS ORDERED: Nitroglycerin 2% Ointment 1 INCH/1 GM Packet ONE (10:52)
[2018-09-08] MEDS ORDERED: Iopamidol 370 76% 50 ML VIAL FS ONE (10:58)
--- NOTE | 2018-09-08 11:10 | RAD ---
AP CHEST: Date: 09/08/18 HISTORY: Dyspnea. COMPARISON: 09/04/18. FINDINGS: Cardiomegaly. Mild vascular engorgement. No focal infiltrate or significant congestion. A moderate size right pleural effusion is present, best seen on CT abdomen and pelvis images through lung bases. There is evidence of mild right basilar atelectasis. IMPRESSION: Cardiomegaly and mild vascular engorgement. Right pleural effusion. POS: H
--- NOTE | 2018-09-08 11:14 | CT ---
CT ABDOMEN AND PELVIS WITHOUT IV CONTRAST: Date: 09/08/18 Multiple axial tomograms obtained without IV enhancement. Oral contrast was administered. INDICATION: Abdominal pain. FINDINGS: Images through the lung bases reveal small right pleural effusion. There is also a small pericardial effusion. The liver, spleen, and pancreas appear unremarkable. Stomach and duodenum unremarkable. Adrenal glands appear unremarkable. There is an atrophic left kidney with perinephric haziness and stranding surrounding the left kidney. Right kidney unremarkable. There is no hydronephrosis. The urinary bladder is contracted with a Fole y catheter in place. Small bowel loops appear unremarkable. Radiopaque suture is seen within the colon wall at the region of the hepatic flexure suggesting a prior right colectomy. Stool is seen throughout the colon. Scatte red diverticula. Aorta shows atherosclerotic calcification and mild ectasia without evidence of aneurysm. No evidence of mass or adenopathy identified. Wedge compression of the L1 vertebra. Degenerative changes in the s pine with osteopenia. IMPRESSION: 1. Small right pleural effusion. 2. Small pericardial effusion. 3. Atrophic left kidney with left perinephric stranding and haziness. 4. Otherwise no acute intraabdominal process. POS: [facility]
--- NOTE | 2018-09-08 11:18 | CT ---
CT LUMBAR SPINE: Date: 09/08/18 Multiple axial tomograms obtained through the lumbar spine with multiplanar reconstruction. INDICATION: Back pain. Comparison is made to a lateral chest film from 11/02/17. FINDINGS: There is a compression deformity involving the L1 vertebra. When compared to the 2017 exam, there was anterior wedge compression at that time. The compression has progressed. There is severe loss of kp tral and anterior height today. There is also mild retropulsion at the posterior inferior cortex of L 1 which appears new when compared to the prior exam. The other lumbar vertebra maintain normal height and alignment. The T12 vertebra maintains normal hei ght. There are degenerative disc changes. Vacuum phenomenon at L4-5 and L5-S1. At T12-L1, there is no disc bulge or protrusion. Mild retropulsion of the posterior inferior cortex of L1 produces mild flattening of the thecal sac. No significant central canal stenosis. No significant disc bulge or protrusion at L1-2 disc. At L2-3, no significant disc bulge or protrusion. No central canal stenosis. At L3-4, there is mild disc bulge without protrusion. Mild facet hypertrophy. Mild central canal sten osis. At L4-5, there is mild disc bulge without protrusion. Facet and ligamentous hypertrophy is present re sulting in mild to moderate central canal stenosis. At L5-S1, mild disc bulge without protrusion. Mild facet hypertrophy. No significant central canal st enosis. IMPRESSION: 1. Compression deformity of the L1 vertebra has progressed when compared to the prior plain film of 2017. Mild retropulsion of the posterior inferior cortex of L1 without central canal stenosis or disc protrusion. 2. There are degenerative changes at the other lumbar levels with mild disc bulge at several levels as described above. POS: [facility]
[2018-09-08] MEDS ORDERED: Senokot S 8.6-50 MG TAB PO PRN (11:54)
[2018-09-08] MEDS ORDERED: Bisacodyl 5 MG TAB PO PRN (11:54)
[2018-09-08] MEDS ORDERED: Ondansetron PF 4 MG/2 ML Vial IVP PRN (11:54)
[2018-09-08] MEDS ORDERED: Benzonatate 100 MG CAP PO PRN (11:54)
[2018-09-08] MEDS ORDERED: Diabetic Tussin 200 MG/10 ML UDCUP PO PRN (11:54)
[2018-09-08] MEDS ORDERED: Acetaminophen 325 MG TAB PO PRN (11:54)
[2018-09-08] MEDS ORDERED: cloNIDine 0.1 MG TAB PO PRN (11:54)
[2018-09-08] MEDS ORDERED: hydrALAZINE 20 MG/ML VIAL SLOW IVP PRN (11:54)
[2018-09-08] MEDS ORDERED: Metolazone 5 MG TAB PO SCH (12:00)
[2018-09-08 12:40] LABS: Troponin I 0.166 ng/mL (< 0.028)
--- NOTE | 2018-09-08 14:11 | HP ---
DATE OF ADMISSION: 09/08/2018 PRIMARY CARE PHYSICIAN: [facility]. CHIEF COMPLAINT: Worsening weakness for the last month or so with weight loss as well as worsening s hortness of breath of few days' duration. HISTORY OF PRESENT ILLNESS: Mr. Montes is a very pleasant 72-year-old male with known history of ch ronic systolic and diastolic congestive heart failure as well as coronary artery disease, status post stenting in 2017; dyslipidemia; hypertension; rheumatoid arthritis; and COPD, who presented to the mergency room with the above-mentioned complaint. History is mainly obtained by the patient's a s the patient is found asleep at this time and drifts back to sleep once woken up. At this time, Mr. Montes's reports that he has not been feeling very well for quite a while now . He has been eating poorly and has been losing weight. He is getting weaker and weaker. She repor ts that he is compliant with his medications and has no recent illnesses. His last hospitalization t o our facility was in 02/2018 for acute CHF and nonbleeding ulcer undergoing EGD. He follows up with [facility] as an outpatient. He was seen in the emergency room 4 days ago for complaints of generalized wea kness. He was, however, discharged after general evaluation did not find any acute findings. She reports that he has 20, 40, and 80 mg of Lasix at home and he increases his dose of Lasix wheneve r he feels like he is retaining fluid. He has taken 80 mg of Lasix last 2 days, but feels that his l ower extremity swelling is getting worse. She has noticed that he wakes up in the middle of night wh en she finds him sitting on the edge of the bed trying to catch breath. This morning, he woke her up and asked her to call EMS because of worsening shortness of breath. In the emergency room upon presentation, his oxygen saturation was 90% on room air, blood pressure 14 9/100. His chest x-ray showed evidence of pulmonary vascular congestion. His physical examination w as consistent with anasarca. His lab work showed elevated BNP almost at 18,000 and liver enzyme elev ation as well as a BUN and creatinine above the baseline. He was given 40 mg of Lasix in the emergen cy room and is now being admitted for acute on chronic congestive heart failure exacerbation. PAST MEDICAL HISTORY: 1. Chronic combined congestive heart failure. His last echocardiogram was done in 02/2018, which sh owed EF of 40%-45% and severe tricuspid regurgitation. 2. Hypertension. 3. Dyslipidemia. 4. Coronary artery disease status post 3 stents placement in 2016. 5. Peptic ulcer disease diagnosed with EGD, last admission. 6. Lupus. 7. Rheumatoid arthritis. 8. History of spinal compression fracture. 9. Chronic kidney disease stage 3. 10. History of colon cancer, status post surgery. PAST SURGICAL HISTORY: 1. EGD in 02/2018. 2. Cardiac stenting x3 in 08/2017. 3. Hemicolectomy. 4. Appendectomy. 5. 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 6. Repair of severed ulnar nerve. ALLERGIES: Include PENICILLIN. FAMILY HISTORY: No family history of any premature coronary artery disease or stroke. CODE STATUS: FULL CODE. CURRENT HOME MEDICATIONS: It further needs to be confirmed, but according to the ER note, he takes a lbuterol p.r.n.; aspirin 81 mg daily; vitamin B12 daily; vitamin D2 once a week; folic acid 1 mg kacy y; Lasix 20, 40, or 80 daily; hydralazine 50 t.i.d.; hydroxychloroquine 300 daily; lisinopril 5 mg da ana lilia; metoprolol tartrate 100 mg b.i.d.; nitroglycerin sublingual p.r.n.; simvastatin 40 mg daily; and tramadol 50 mg every 6 hours as needed. REVIEW OF SYSTEMS: A 12-point review of systems was done. It is negative except for those mentioned in the history and physical. Review of system is limited as the patient falls back asleep quickly a fter being woken up by myself. LABORATORY DATA: His CBC shows hemoglobin of 11.1, which seems to be at his baseline. He has eviden ce of macrocytosis. Serum chemistry shows sodium 133, chloride 89, BUN 56, creatinine 2.24, blood colón gar 77. His liver enzymes are elevated with a total bilirubin of 1.6, AST 72, ALT 110, alkaline phos phatase 178. Creatine kinase 401. CK-MB 12.1, troponin 0.156. BNP 70,890. Urinalysis is unremarka ble. Chest x-ray by my review shows pulmonary vascular congestion and pulmonary edema and cardiomega ly. Mild to moderate right-sided pleural effusion. CT scan of the abdomen and pelvis was done becau se of the patient's complaint of some abdominal pain, which showed small right-sided pleural effusion and small pericardial effusion and atrophic left kidney with left perinephric stranding and haziness . Lumbar spinal CT done in the emergency room shows compression deformity of the L1 vertebra, which has progressed since 2017 and multiple degenerative changes. A 12-lead EKG by my review shows sinus rhythm with some premature ventricular complexes. T-waves are flattened. ST segments are normal. PHYSICAL EXAMINATION: VITAL SIGNS: Upon presentation to the emergency room, blood pressure 149/100, pulse of 71, respirati ons 18, saturating 97% on room air, temperature 97.6. GENERAL: The patient is somnolent, but arousable. Family is at bedside. He appears malnourished an d somewhat cachectic and disheveled. HEENT: Mucous membranes are slightly dry. No oropharyngeal exudate or erythema. Head is normocepha lic, atraumatic. Pupils equal, reactive to light and accommodation. Extraocular movement intact. NECK: Supple without any lymphadenopathy or bruit. JVD is noticed. CHEST: Chest examination shows few bibasilar rales, but no wheezes. CARDIOVASCULAR: Regular rate and rhythm is regular without any murmur, rubs or gallops. ABDOMEN: Nontender. From my examination, he has some subcutaneous edema noticed on palpation. EXTREMITIES: Show extensive bilateral pitting edema extending all the way up to his abdomen. NEUROLOGIC: Nonfocal. SKIN: Free of any rashes or bruises. Feel warm and dry to touch. IMPRESSION AND PLAN: 1. Acute on chronic congestive heart failure. He has systolic and diastolic dysfunction. Even thou gh after being compliant with his medications, he has significant fluid retention. He has been given 40 of IV Lasix in the ER and we will repeat another dose today. We will also give him Zaroxolyn. I f his symptoms do not improve, we will repeat the echocardiogram. Heart failure clinic and cardiac r ehabilitation will be consulted as well. We will resume his cardio-prudent medications. Strict I's and O's and fluid restriction will be instituted. 2. Acute on chronic kidney insufficiency, likely due to cardiorenal syndrome as well as an extensive fluid retention. We will continue to diurese and monitor kidney function. Avoid any nephrotoxic me dications. We will hold his MEGHANA inhibitor for now. 3. Elevated cardiac enzymes. This is demand ischemia from congestive heart failure exacerbation. W e will continue to trend serial cardiac enzymes. No evidence to suggest acute coronary syndrome at t his time. Resume home medications. 4. Generalized weakness. We will have OT, PT evaluate the patient and we will have him evaluated fo r rehabilitation as well. Rehab was suggested last admission also, but the patient had declined it a t that time as well. His generalized weakness is most likely secondary to worsening congestive heart failure among other comorbidities like chronic kidney disease as well as coronary artery disease and possibly chronic obstructive pulmonary disease. We will put him on dietary supplements once acute p hase of congestive heart failure is over to prevent fluid overload. Check a TSH as well. 5. Elevated liver enzymes. CT scan of the abdomen and pelvis done in the emergency room was unremar kable for any acute changes. Most likely this is secondary to passive hepatic congestion from severe acute congestive heart failure. We will repeat the labs in the morning. 6. Chronic obstructive pulmonary disease, currently appears compensated. We will add inhalers and n ebulizers as needed. 7. History of colon cancer, status post hemicolectomy. 8. History of peptic ulcer disease diagnosed by EGD last hospitalization. We will reconsult home me dication and continue proton pump inhibitor if he is on it. 10. History of rheumatoid arthritis. He takes Plaquenil, we will restart that. I feel that he need s to be reevaluated for better disease modifying agents to control his worsening symptoms of rheumato id arthritis. 11. Code status: FULL CODE. Discussed with the patient and his . 12. Deep venous thrombosis and gastrointestinal prophylaxis. DISPOSITION: Mr. Montes is currently being admitted to the hospital were acute congestive heart james lure exacerbation. Estimated length of stay at least 2-3 midnights. Further management will depend upon his clinical course.
[2018-09-08] MEDS: Furosemide 40 MG/4 ML VIAL SLOW IVP SCH (14:20)
[2018-09-08 15:22] LABS: Troponin I 0.158 ng/mL (< 0.028)
[2018-09-08] MEDS: traMADol HCl 50 MG TAB PO PRN (21:27)
[2018-09-08] MEDS: Heparin 5,000 UNITS/ML VIAL SC SCH (21:27)
[2018-09-09] MEDS: Furosemide 40 MG/4 ML VIAL SLOW IVP SCH ×2 (05:19→13:41)
[2018-09-09 06:12] LABS: #Lymphocytes 0.6 thou/uL (1.20-3.40); #Monocytes 0.7 thou/uL (0.11-0.59); #Neutrophils 6.6 thou/uL (1.40-6.50); %Eosinophils 0.2 % (0.0-10.0); %Lymphocytes 7.5 % (21.0-51.0); %Neutrophils 83.3 % (42.0-75.0); Hemoglobin 10.4 g/dL (14.0-18.0); Mean Corpuscular HGB CONC 30.2 g/dL (32.0-36.0); Mean Corpuscular Hemoglobin 30.6 pg (27.0-31.0); Platelet Count 121 thou/uL (130-400); RBC Distribution Width 15.1 % (11.5-14.5); Red Blood Cell (RBC) Count 3.41 mill/uL (4.70-6.10); White Blood Cell (WBC) Count 7.9 thou/uL (4.8-10.8)
[2018-09-09 06:23] LABS: ALT (SGPT) 82 U/L (8-55); AST (SGOT) 56 U/L (5-34); Albumin 3.4 g/dL (3.4-4.8); Alkaline Phosphatase 159 U/L (40-150); Anion Gap 15 mmol/L (10-20); BUN (Urea Nitrogen) 53 mg/dL (8.4-25.7); Bilirubin, Total 1.7 mg/dL (0.2-1.2); Calc. Creatinine Clearance 25 mL/min (70-130); Calcium 9.5 mg/dL (7.8-10.44); Carbon Dioxide 35 mmol/L (23-31); Chloride 88 mmol/L (98-107); Estimated GFR-MDRD 34; Glucose 86 mg/dL (83-110); Protein, Total 7.2 g/dL (5.8-8.1); Sodium 135 mmol/L (136-145)
[2018-09-09] MEDS: Heparin 5,000 UNITS/ML VIAL SC SCH ×2 (08:27→21:28)
--- NOTE | 2018-09-09 14:29 | PDOC.PN ---
- Subjective Encounter Start Date: 09/09/18 Encounter Start Time: 09:45 -: old records requested/rev Pt seen and examined, chart reviewed in its entirety, this is my first visit with this patient follow up for: acut han chronic systolic CHF, last echo 02/2018, EF 40-45%. Edema much better, no PND or orthopnea responding well to lasix diuresis No F/C, no N/V/D/C, no CP or SOB All systems reviewed and neg x as per HPI - Objective Resuscitation Status: Resuscitation Status FULL:Full Resuscitation MAR Reviewed: Yes Vital Signs & Weight: Vital Signs (12 hours) Temp Pulse Resp BP BP Pulse Ox 09/09/18 11:32 98.1 F 80 18 142/68 H 98 09/09/18 08:30 98 09/09/18 08:29 98.1 F 80 16 145/66 H 98 09/09/18 04:00 98.2 F 91 17 151/72 H 98 Weight Admit Weight 110 lb 14.4 oz Weight 111 lb 2 oz I&O: 09/08/18 09/09/18 09/10/18 06:59 06:59 06:59 Intake Total 2000 240 Output Total 2650 Balance -650 240 Result Diagrams: 09/10/18 05:39 09/10/18 05:39 Radiology Reviewed by me: Yes EKG Reviewed by me: Yes Phys Exam - Physical Examination Constitutional: NAD HEENT: PERRLA, moist MMs, sclera anicteric, oral pharynx no lesions Neck: no nodes, no JVD, supple, full ROM Respiratory: no wheezing, no rales, no rhonchi, clear to auscultation bilateral Cardiovascular: RRR, no significant murmur, no rub Gastrointestinal: soft, non-tender, no distention, positive bowel sounds Musculoskeletal: edema present Neurological: non-focal, normal sensation, moves all 4 limbs Lymphatic: no nodes Psychiatric: normal affect, A&O x 3 Skin: no rash, normal turgor, cap refill <2 seconds Dx/Plan (1) Acute on chronic diastolic CHF (congestive heart failure) Code(s): I50.33 - ACUTE ON CHRONIC DIASTOLIC (CONGESTIVE) HEART FAILURE Status : Acute Comment: acut han chronic systolic CHF. continue diuresis, get echo in AM, monitor I/o (2) Cardiorenal syndrome Code(s): I13.10 - HYP HRT & CHR KDNY DIS W/O HRT FAIL, W STG 1-4/UNSP CHR KDNY Status: Chronic Qualifiers: Hypertensive chronic kidney disease stage: stage 1-4 or unspecified chronic kidney disease (3) Hypokalemia Code(s): E87.6 - HYPOKALEMIA Status: Acute (4) BPH (benign prostatic hyperplasia) Code(s): N40.0 - BENIGN PROSTATIC HYPERPLASIA WITHOUT LOWER URINRY TRACT SYMP Status: Chronic Qualifiers: Lower urinary tract symptom presence: symptoms absent Qualified Code(s): N40.0 - Benign prostatic hyperplasia without lower urinary tract symptoms Comment: stable (5) CAD (coronary artery disease) Code(s): I25.10 - ATHSCL HEART DISEASE OF [place] CORONARY ARTERY W/O ANG PCTRS Status: Chronic Qualifiers: Coronary Disease-Associated Artery/Lesion type: [place] artery [place] vs. transplanted heart: [place] heart Associated angina: without angina Qualified Code(s): I25.10 - Atherosclerotic heart disease of [place] coronary artery without angina pectoris Comment: stable (6) COPD (chronic obstructive pulmonary disease) Status: Chronic Qualifiers: COPD type: unspecified COPD Qualified Code(s): J44.9 - Chronic obstructive pulmonary disease, unspecified (7) HLD (hyperlipidemia) Code(s): E78.5 - HYPERLIPIDEMIA, UNSPECIFIED Status: Chronic Qualifiers: Hyperlipidemia type: unspecified Qualified Code(s): E78.5 - Hyperlipidemia , unspecified Comment: continue statin (8) HTN (hypertension) Code(s): I10 - ESSENTIAL (PRIMARY) HYPERTENSION Status: Chronic Qualifiers: Hypertension type: essential hypertension Qualified Code(s): I10 - Essential (primary) hypertension Comment: Monitor vital signs, titrate antihypertensives as needed (9) Lupus Code(s): L93.0 - DISCOID LUPUS ERYTHEMATOSUS Status: Chronic Qualifiers: Lupus erythematosus form: unspecified Qualified Code(s): L93.0 - Discoid lupus erythematosus (10) Rheumatoid arthritis Code(s): M06.9 - RHEUMATOID ARTHRITIS, UNSPECIFIED Status: Chronic Qualifiers: Rheumatoid arthritis location: unspecified site Rheumatoid factor presence : unspecified presence Qualified Code(s): M06.9 - Rheumatoid arthritis, unspecified Comment: stable (11) Tobacco abuse Code(s): Z72.0 - TOBACCO USE Status: Chronic - Plan cont current plan of care, 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
[2018-09-09] MEDS: Potassium Chloride 20 MEQ TAB PO SCH ×3 (15:01→22:47)
[2018-09-09] MEDS: traMADol HCl 50 MG TAB PO PRN ×2 (15:37→21:28)
[2018-09-10] MEDS: traMADol HCl 50 MG TAB PO PRN ×3 (01:50→20:26)
[2018-09-10] MEDS: Furosemide 40 MG/4 ML VIAL SLOW IVP SCH ×2 (05:57→14:22)
[2018-09-10 06:27] LABS: BUN (Urea Nitrogen) 47 mg/dL (8.4-25.7); Calc. Creatinine Clearance 26 mL/min (70-130); Calcium 9.6 mg/dL (7.8-10.44); Estimated GFR-MDRD 37; Glucose 127 mg/dL (83-110); Magnesium 1.9 mg/dL (1.6-2.6)
[2018-09-10 06:36] LABS: Anion Gap 17 mmol/L (10-20); Carbon Dioxide 34 mmol/L (23-31); Chloride 89 mmol/L (98-107); Potassium 4.5 mmol/L (3.5-5.1); Sodium 135 mmol/L (136-145)
[2018-09-10 06:52] LABS: Hemoglobin 9.9 g/dL (14.0-18.0); Lymphocytes 9 % (21-51); MDiff Complete? YES; Mean Corpuscular HGB CONC 30.4 g/dL (32.0-36.0); Mean Platelet Volume 9.6 fL (7.4-10.4); Monocytes 5 % (0-10); Neutrophil 86 % (42-75); PLT Morphology Comment Appears Decreased; Platelet Count 99 thou/uL (130-400); RBC Distribution Width 14.8 % (11.5-14.5); Red Blood Cell (RBC) Count 3.18 mill/uL (4.70-6.10); White Blood Cell (WBC) Count 6.8 thou/uL (4.8-10.8)
--- NOTE | 2018-09-10 13:12 | PDOC.PN ---
- Subjective Encounter Start Date: 09/10/18 Encounter Start Time: 08:00 follow up for: acute on chronic systolic CHF, last echo 02/2018, EF 40-45%. Edema much better, no PND or orthopnea responding well to lasix diuresis echo done, EF down to 30-35% with apical akinesis not mentioned on echo 02/2018. + 150mL last 24 hours, no on fluid restriction. states hes better today No F/C, no N/V/D/C, no CP or SOB All systems reviewed and neg x as per HPI - Objective Resuscitation Status: Resuscitation Status FULL:Full Resuscitation MAR Reviewed: Yes Vital Signs & Weight: Vital Signs (12 hours) Temp Pulse Resp BP Pulse Ox 09/10/18 04:00 98.0 F 84 16 128/64 95 Weight Admit Weight 110 lb 14.4 oz Weight 109 lb 7 oz I&O: 09/09/18 09/10/18 09/11/18 06:59 06:59 06:59 Intake Total 1999 2440 Output Total 2650 2300 Balance -650 140 Result Diagrams: 09/10/18 05:39 09/10/18 05:39 Phys Exam - Physical Examination Constitutional: NAD HEENT: PERRLA, moist MMs, sclera anicteric, oral pharynx no lesions Neck: no nodes, no JVD, supple, full ROM Respiratory: no wheezing, no rales, no rhonchi, clear to auscultation bilateral Cardiovascular: RRR, no rub Gastrointestinal: soft, non-tender, no distention, positive bowel sounds Musculoskeletal: pulses present, edema present global muscle wasting Neurological: non-focal, normal sensation, moves all 4 limbs Lymphatic: no nodes Psychiatric: normal affect, A&O x 3 Skin: no rash, cap refill <2 seconds Dx/Plan (1) Acute on chronic diastolic CHF (congestive heart failure) Code(s): I50.33 - ACUTE ON CHRONIC DIASTOLIC (CONGESTIVE) HEART FAILURE Status : Acute Comment: acute on chronic systolic CHF. continue diuresis, fluid restrict, echo worse, ask cardiology to eval (2) Cardiorenal syndrome Code(s): I13.10 - HYP HRT & CHR KDNY DIS W/O HRT FAIL, W STG 1-4/UNSP CHR KDNY Status: Chronic Qualifiers: Hypertensive chronic kidney disease stage: stage 1-4 or unspecified chronic kidney disease (3) Hypokalemia Code(s): E87.6 - HYPOKALEMIA Status: Acute (4) BPH (benign prostatic hyperplasia) Code(s): N40.0 - BENIGN PROSTATIC HYPERPLASIA WITHOUT LOWER URINRY TRACT SYMP Status: Chronic Qualifiers: Lower urinary tract symptom presence: symptoms absent Qualified Code(s): N40.0 - Benign prostatic hyperplasia without lower urinary tract symptoms Comment: stable (5) CAD (coronary artery disease) Code(s): I25.10 - ATHSCL HEART DISEASE OF [place] CORONARY ARTERY W/O ANG PCTRS Status: Chronic Qualifiers: Coronary Disease-Associated Artery/Lesion type: [place] artery [place] vs. transplanted heart: [place] heart Associated angina: without angina Qualified Code(s): I25.10 - Atherosclerotic heart disease of [place] coronary artery without angina pectoris Comment: stable (6) COPD (chronic obstructive pulmonary disease) Status: Chronic Qualifiers: COPD type: unspecified COPD Qualified Code(s): J44.9 - Chronic obstructive pulmonary disease, unspecified (7) HLD (hyperlipidemia) Code(s): E78.5 - HYPERLIPIDEMIA, UNSPECIFIED Status: Chronic Qualifiers: Hyperlipidemia type: unspecified Qualified Code(s): E78.5 - Hyperlipidemia , unspecified Comment: continue statin (8) HTN (hypertension) Code(s): I10 - ESSENTIAL (PRIMARY) HYPERTENSION Status: Chronic Qualifiers: Hypertension type: essential hypertension Qualified Code(s): I10 - Essential (primary) hypertension Comment: Monitor vital signs, titrate antihypertensives as needed (9) Lupus Code(s): L93.0 - DISCOID LUPUS ERYTHEMATOSUS Status: Chronic Qualifiers: Lupus erythematosus form: unspecified Qualified Code(s): L93.0 - Discoid lupus erythematosus (10) Rheumatoid arthritis Code(s): M06.9 - RHEUMATOID ARTHRITIS, UNSPECIFIED Status: Chronic Qualifiers: Rheumatoid arthritis location: unspecified site Rheumatoid factor presence : unspecified presence Qualified Code(s): M06.9 - Rheumatoid arthritis, unspecified Comment: stable (11) Tobacco abuse Code(s): Z72.0 - TOBACCO USE Status: Chronic (12) Severe protein-calorie malnutrition Code(s): E43 - UNSPECIFIED SEVERE PROTEIN-CALORIE MALNUTRITION Status: Chronic Comment: encourage po, ask dietary to see - Plan cont current plan of care, PT/OT, 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
[2018-09-10] MEDS: Heparin 5,000 UNITS/ML VIAL SC SCH (17:28)
--- NOTE | 2018-09-10 21:53 | CON ---
DATE OF CONSULTATION: 09/10/2018 HISTORY OF PRESENT ILLNESS: Mr. Montes is a pleasant 72-year-old white male who I initially evaluated in 08/2017 in the hospital. He was admitted with increased shortness of breath, which started at 4:00 a.m. in the morning. He noticed increased dyspnea on exertion while walking. He denied any nausea, vomiting, or chest discomfort. He did notice some wheezing. He came to the emergency room for further evaluation. He usually is followed at the [facility]. Echo revealed mild left atrial enlargement, mild left ventricular dysfunction with ejection fraction of 40%-45%, evidence for diastolic dysfunction, aortic valvular fibrosis, moderate mitral regurgitation, [id number] tricuspid regurgitation, and mild pulmonic insufficiency. BNP was 3647.8. He had pleural effusions and pulmonary edema on chest x-ray. Initially, he wished to be evaluated at the [facility]; however, his troponin increased to 0.428 and he had anterolateral ischemia on EKG. He has also noted a drop in his hemoglobin from 11.1 to 10.1 despite diuresis. He underwent cardiac catheterization on the 09/13/2017. Left ventriculogram was not done due to his renal insufficiency. He was found to have 70%-80% mid LAD lesion, 50% proximal circumflex, 70% mid RCA, 70% distal RCA stenosis. He underwent placement of bare metal stent Rebel 3.0 x 32 mm in the LAD with reductions of both lesions to 0. He underwent placement of bare metal stent Rebel 3.0 x 28 and 3.5 x 28 in the distal and mid RCA. Bare metal stents were placed due to a finding of a drop in hemoglobin while he was being treated with heparin. Cardiac catheterization was performed in the biplane room to use less contrast. He returned to the office on 10/12/2017. It was felt that he needed to undergo a repeat echo 3 months after intervention, and so [facility]. His cholesterol was elevated and was changed from pravastatin 10 to simvastatin 40. He continued to deny any chest discomfort. He stopped smoking on 09/11/2017 when he was initially admitted. [facility] continued him on clopidogrel even though he had bare metal stents. He was readmitted on 11/02/2017 with increased dyspnea, orthopnea, left -sided chest pain and was diuresed. Echo at that time again revealed ejection fraction of 40%-45%. He then was admitted again in 02/2018 with increased shortness of breath. He came to the hospital and was found to have a hemoglobin of 7.4. He continued to deny any chest discomfort. He underwent EGD , which revealed a small ulceration in the gastric antrum without any bleeding. Echo again showed ejection fraction of 40%-45%. His Plavix was stopped. He did receive 2 units of blood during that admission. I have not seen him since that time as he has not returned for office followup. He now is admitted with increased shortness of breath. He has been eating poorly and losing weight and becoming weaker and weaker. He states he has been compliant with his medications. He has been taking increased dose of Lasix up to 80 mg b.i.d. and his leg edema has been getting worse. At times, he will wake at night short of breath, had to sit on the edge of the bed. He denies any chest, arm, neck, or jaw discomfort. He was admitted on Sunday after he called EMS for increased shortness of breath. He has been given intravenous Lasix and states that he feels better; however, looking at his I's and O's, he has not had any significant diuresis. PAST MEDICAL HISTORY: Hypertension; chronic systolic and diastolic heart failure with ejection fraction of 40%-45%; hypercholesterolemia; renal insufficiency; history of [place] exposure; rheumatoid arthritis; lupus erythematosus; coronary artery disease, status post stent placement in 2016; history of spinal compression fracture. PAST SURGICAL HISTORY: Include colonic resection due to colon cancer, repair of ulnar nerve, and appendectomy. MEDICATIONS AT HOME: Include albuterol 2 puffs q.i.d., aspirin 81 daily, vitamin B12 1000 daily, Colace 100 mg b.i.d., Fergon 324 b.i.d., finasteride 5 mg daily, folic acid 1 mg daily, furosemide 80 b.i.d., hydralazine 50 t.i.d., lisinopril 5 mg daily, metoprolol 100 mg b.i.d., nitroglycerin p.r.n., Viagra 100 daily, simvastatin 40 at bedtime. ALLERGIES: PENICILLIN. SOCIAL HISTORY: He smoked 5 cigarettes per day, but stopped at the time of stent placement in 09/2017. He does not drink. FAMILY HISTORY: Negative for coronary artery disease. REVIEW OF SYSTEMS: Twelve-point review of systems is unremarkable except for weight loss and increasing weakness. PHYSICAL EXAMINATION: VITAL SIGNS: Blood pressure 143/72, pulse of 85. HEENT: PERRL. NECK: Supple. CHEST: Reveals crackles at the bases. There is no wheezing. CARDIOVASCULAR: S1 and S2 are normal without any S3, S4, or murmurs. ABDOMEN: Normal bowel sounds without tenderness or organomegaly. EXTREMITIES: Revealed 1+ pretibial edema with muscle wasting. NEUROLOGIC: Grossly intact. SKIN: Warm and dry. LABORATORY DATA: EKG revealed normal sinus rhythm with premature atrial and ventricular complexes, left-axis deviation, probable LVH, nonspecific ST and T- wave changes. He has had an episode of atrial fibrillation on the monitor during this admission, which is a new finding. Chest x-ray revealed cardiomegaly with increased pulmonary vascularity. Abdominal and pelvis CT revealed small pericardial effusion, small right pleural effusion, atrophic left kidney. Lumbar spine CT revealed a compression fracture. Hemoglobin 9.9, hematocrit 32.4, white count 6800, platelets 99,000. His hemoglobin has continually dropped from 11.1 at the time of admission to 9.9 at this time. Sodium 135, potassium 4.5, chloride 89, carbon dioxide 34, BUN 47, creatinine 1.81. AST has fallen from 150 down to 56, ALT from 138 down to 82. Troponin I is 0.1666 with chronically elevated troponin I in the past. TSH is slightly elevated at 4.9471. BNP is 17,890 at the time of admission. Echocardiogram revealed ejection fraction of 35%-40%, which is somewhat less than before; akinesis of the basal inferior wall and the posterior wall; left atrium was mildly dilated; moderate mitral regurgitation; aortic valvular sclerosis; severe tricuspid regurgitation; and moderate pulmonic regurgitation. IMPRESSION: 1. Acute on chronic systolic and probable diastolic heart failure. He does not appear to have any significant diuresis since admission according to his I' s or O's. There has been slight reduction in his ejection fraction down to 35%- 40%. 2. Chronically elevated troponin I with demand ischemia. 3. Chronic kidney insufficiency. 4. Elevated liver function test, probably due to hepatic congestion. 5. Chronic obstructive pulmonary disease. 6. Former smoker. 7. Hypertension. 8. Hypercholesterolemia. 9. History of colon cancer, status post hemicolectomy. 10. Peptic ulcer disease with gastrointestinal bleeding last admission. 11. History of rheumatoid arthritis. 12. Lupus. 13. Coronary artery disease with placement of bare metal stent in the LAD and in the right coronary in 09/2017. 14. Hemoglobin drop since admission from 11.1 to 9.9. PLAN: The high-dose metoprolol and moderate-dose hydralazine have been discontinued since admission and his blood pressure is not that significantly elevated. With his worsening left ventricular function, I will start him on carvedilol 3.125 b.i.d. and gradually increase dosage. MEGHANA inhibitor and ARB drug should be avoided with his renal insufficiency. We discussed limiting fluid to 1500 mL per day. With his worsening left ventricular function, consideration sometime should be given to cardiac catheterization; however, with him in failure at this time and with his renal insufficiency, this would be problematic. Also, with his drop in hemoglobin since admission, I would discontinue the heparin. MTDD
[2018-09-11] MEDS: Furosemide 40 MG/4 ML VIAL SLOW IVP SCH ×2 (05:38→13:29)
[2018-09-11 06:16] LABS: ALT (SGPT) 55 U/L (8-55); AST (SGOT) 48 U/L (5-34); Albumin 3.3 g/dL (3.4-4.8); Alkaline Phosphatase 148 U/L (40-150); BUN (Urea Nitrogen) 41 mg/dL (8.4-25.7); Bilirubin, Total 1.4 mg/dL (0.2-1.2); Calc. Creatinine Clearance 27 mL/min (70-130); Calcium 9.8 mg/dL (7.8-10.44); Cardiac Risk 2.6 (Less than 4.5); Cholesterol 82 mg/dl (< 200 Desired); Estimated GFR-MDRD 39; Globulin 3.7 g/dL (2.4-3.5); Glucose 98 mg/dL (83-110); HDL Cholesterol 32 mg/dL (>60 Neg Risk); LDL Cholesterol, Calculated 34 mg/dL; Triglycerides 82 mg/dL (Less than 150)
[2018-09-11 06:18] LABS: #Lymphocytes 0.8 thou/uL (1.20-3.40); #Monocytes 0.7 thou/uL (0.11-0.59); #Neutrophils 4.5 thou/uL (1.40-6.50); %Basophils 0.3 % (0.0-1.0); %Eosinophils 0.1 % (0.0-10.0); %Lymphocytes 13.8 % (21.0-51.0); %Monocytes 11.6 % (0.0-10.0); %Neutrophils 74.1 % (42.0-75.0); Hemoglobin 10.2 g/dL (14.0-18.0); Mean Corpuscular HGB CONC 30.8 g/dL (32.0-36.0); Mean Corpuscular Hemoglobin 31.7 pg (27.0-31.0); Mean Platelet Volume 9.5 fL (7.4-10.4); Platelet Count 97 thou/uL (130-400); RBC Distribution Width 14.6 % (11.5-14.5); Red Blood Cell (RBC) Count 3.22 mill/uL (4.70-6.10); White Blood Cell (WBC) Count 6.1 thou/uL (4.8-10.8)
[2018-09-11 06:25] LABS: Anion Gap 15 mmol/L (10-20); Carbon Dioxide 40 mmol/L (23-31); Chloride 89 mmol/L (98-107); Potassium 4.5 mmol/L (3.5-5.1); Sodium 139 mmol/L (136-145)
[2018-09-11] MEDS ORDERED: Carvedilol 3.125 MG TAB PO SCH ×2 (08:00→10:00)
[2018-09-11 13:44] VITALS: BMI 14.3
--- NOTE | 2018-09-11 15:03 | PDOC.PN ---
- Subjective Encounter Start Date: 09/11/18 Encounter Start Time: 10:00 follow up for: acute on chronic systolic CHF, last echo 02/2018, EF 40-45%. Edema much better, no PND or orthopnea responding well to lasix diuresis, neg 650mL overnight, on fluid restriction Seen by cardiology, coireg added, MEGHANA/ARB on hold due to Cr, needs cath at soem point echo done, EF down to 30-35% with apical akinesis not mentioned on echo 02/2018. + 150mL last 24 hours, no on fluid restriction. states hes better today No F/C, no N/V/D/C, no CP or SOB All systems reviewed and neg x as per HPI - Objective Resuscitation Status: Resuscitation Status FULL:Full Resuscitation MAR Reviewed: Yes Vital Signs & Weight: Vital Signs (12 hours) Temp Pulse Pulse Pulse Resp BP BP 09/11/18 11:35 98.2 F 96 18 09/11/18 10:55 85 90 124/75 124/70 09/11/18 07:55 09/11/18 07:52 98.6 F 101 H 18 09/11/18 04:00 97.8 F 99 16 BP BP Pulse Ox 09/11/18 11:35 137/69 97 09/11/18 10:55 09/11/18 07:55 94 L 09/11/18 07:52 156/71 H 94 L 09/11/18 04:00 166/75 H 97 Weight Admit Weight 110 lb 14.4 oz Weight 103 lb 3.2 oz I&O: 09/10/18 09/11/18 09/12/18 06:59 06:59 06:59 Intake Total 2440 240 Output Total 2300 850 Balance 140 -610 Result Diagrams: 09/11/18 05:16 09/11/18 05:16 Phys Exam - Physical Examination Constitutional: NAD HEENT: PERRLA, moist MMs, sclera anicteric, oral pharynx no lesions Neck: no nodes, no JVD, supple, full ROM Respiratory: no wheezing, no rales, no rhonchi, clear to auscultation bilateral Cardiovascular: RRR, no significant murmur, no rub Gastrointestinal: soft, non-tender, no distention, positive bowel sounds Musculoskeletal: edema present trace to mid tibia, improved Neurological: non-focal, normal sensation, moves all 4 limbs Lymphatic: no nodes Psychiatric: normal affect, A&O x 3 Skin: no rash, normal turgor, cap refill <2 seconds Dx/Plan (1) Acute on chronic diastolic CHF (congestive heart failure) Code(s): I50.33 - ACUTE ON CHRONIC DIASTOLIC (CONGESTIVE) HEART FAILURE Status : Acute Comment: acute on chronic systolic CHF. continue diuresis, fluid restrict, echo worse, cardiology tweaking meds, home when okay with cards (2) Cardiorenal syndrome Code(s): I13.10 - HYP HRT & CHR KDNY DIS W/O HRT FAIL, W STG 1-4/UNSP CHR KDNY Status: Chronic Qualifiers: Hypertensive chronic kidney disease stage: stage 1-4 or unspecified chronic kidney disease (3) Hypokalemia Code(s): E87.6 - HYPOKALEMIA Status: Resolved (4) BPH (benign prostatic hyperplasia) Code(s): N40.0 - BENIGN PROSTATIC HYPERPLASIA WITHOUT LOWER URINRY TRACT SYMP Status: Chronic Qualifiers: Lower urinary tract symptom presence: symptoms absent Qualified Code(s): N40.0 - Benign prostatic hyperplasia without lower urinary tract symptoms Comment: stable (5) CAD (coronary artery disease) Code(s): I25.10 - ATHSCL HEART DISEASE OF [place] CORONARY ARTERY W/O ANG PCTRS Status: Chronic Qualifiers: Coronary Disease-Associated Artery/Lesion type: [place] artery [place] vs. transplanted heart: [place] heart Associated angina: without angina Qualified Code(s): I25.10 - Atherosclerotic heart disease of [place] coronary artery without angina pectoris Comment: stable (6) COPD (chronic obstructive pulmonary disease) Status: Chronic Qualifiers: COPD type: unspecified COPD Qualified Code(s): J44.9 - Chronic obstructive pulmonary disease, unspecified (7) HLD (hyperlipidemia) Code(s): E78.5 - HYPERLIPIDEMIA, UNSPECIFIED Status: Chronic Qualifiers: Hyperlipidemia type: unspecified Qualified Code(s): E78.5 - Hyperlipidemia , unspecified Comment: continue statin (8) HTN (hypertension) Code(s): I10 - ESSENTIAL (PRIMARY) HYPERTENSION Status: Chronic Qualifiers: Hypertension type: essential hypertension Qualified Code(s): I10 - Essential (primary) hypertension Comment: Monitor vital signs, titrate antihypertensives as needed (9) Lupus Code(s): L93.0 - DISCOID LUPUS ERYTHEMATOSUS Status: Chronic Qualifiers: Lupus erythematosus form: unspecified Qualified Code(s): L93.0 - Discoid lupus erythematosus (10) Rheumatoid arthritis Code(s): M06.9 - RHEUMATOID ARTHRITIS, UNSPECIFIED Status: Chronic Qualifiers: Rheumatoid arthritis location: unspecified site Rheumatoid factor presence : unspecified presence Qualified Code(s): M06.9 - Rheumatoid arthritis, unspecified Comment: stable (11) Tobacco abuse Code(s): Z72.0 - TOBACCO USE Status: Chronic (12) Severe protein-calorie malnutrition Code(s): E43 - UNSPECIFIED SEVERE PROTEIN-CALORIE MALNUTRITION Status: Chronic Comment: encourage po, ask dietary to see - Plan cont current plan of care, plan discussed w/ family, PT/OT, 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
[2018-09-11] MEDS: Carvedilol 6.25 MG TAB PO SCH (17:45)
[2018-09-11] MEDS: traMADol HCl 50 MG TAB PO PRN (21:34)
[2018-09-12] MEDS: traMADol HCl 50 MG TAB PO PRN ×3 (01:27→10:22)
[2018-09-12 05:54] LABS: #Lymphocytes 0.9 thou/uL (1.20-3.40); #Monocytes 0.7 thou/uL (0.11-0.59); #Neutrophils 4.1 thou/uL (1.40-6.50); %Basophils 0.5 % (0.0-1.0); %Lymphocytes 16.2 % (21.0-51.0); %Monocytes 11.9 % (0.0-10.0); %Neutrophils 71.4 % (42.0-75.0); Hemoglobin 10.8 g/dL (14.0-18.0); Mean Corpuscular HGB CONC 30.7 g/dL (32.0-36.0); Mean Corpuscular Hemoglobin 31.3 pg (27.0-31.0); Mean Platelet Volume 10.1 fL (7.4-10.4); Platelet Count 90 thou/uL (130-400); RBC Distribution Width 14.4 % (11.5-14.5); Red Blood Cell (RBC) Count 3.45 mill/uL (4.70-6.10); White Blood Cell (WBC) Count 5.8 thou/uL (4.8-10.8)
[2018-09-12 06:04] LABS: BUN (Urea Nitrogen) 38 mg/dL (8.4-25.7); Calc. Creatinine Clearance 24 mL/min (70-130); Calcium 9.7 mg/dL (7.8-10.44); Estimated GFR-MDRD 40; Glucose 110 mg/dL (83-110); Magnesium 1.9 mg/dL (1.6-2.6)
[2018-09-12 06:19] LABS: Chloride 85 mmol/L (98-107); Potassium 3.4 mmol/L (3.5-5.1); Sodium 136 mmol/L (136-145)
[2018-09-12 06:21] LABS: Anion Gap 18 mmol/L (10-20); Carbon Dioxide 36 mmol/L (23-31)
[2018-09-12] MEDS: Carvedilol 6.25 MG TAB PO SCH ×2 (08:09→18:12)
[2018-09-12] MEDS ORDERED: Potassium Chloride 10 MEQ TAB PO SCH (09:00)
[2018-09-12] MEDS ORDERED: Furosemide 40 MG/4 ML VIAL SLOW IVP SCH (09:15)
[2018-09-12] MEDS: Furosemide 40 MG/4 ML VIAL SLOW IVP SCH ×2 (09:26→15:19)
[2018-09-12 18:13] VITALS: BP 128/65; TEMP 98.3
[2018-09-12] MEDS ORDERED: Simvastatin 20 MG TAB PO SCH (21:00)
[2018-09-12] MEDS ORDERED: Atorvastatin Calcium 10 MG TAB PO SCH (21:00)
== END 2018-09-12 18:38 | disposition home or self-care (01) | DRG 291 ==
LOC: ERS 06:32 → 2NO 13:01
PROVIDERS: ADMIT Internal Medicine; ATTEND Internal Medicine
DX: I13.0 Hypertensive heart and chronic kidney disease with heart failure and stage 1 through stage 4 chronic kidney disease, or unspecified chronic kidney disease (principal); I50.33 Acute on chronic diastolic (congestive) heart failure; E43 Unspecified severe protein-calorie malnutrition; Z68.1 Body mass index [BMI] 19.9 or less, adult; I24.8 Other forms of acute ischemic heart disease; E87.6 Hypokalemia; N40.0 Benign prostatic hyperplasia without lower urinary tract symptoms; I25.10 Atherosclerotic heart disease of native coronary artery without angina pectoris; J44.9 Chronic obstructive pulmonary disease, unspecified; E78.5 Hyperlipidemia, unspecified; L93.0 Discoid lupus erythematosus; M06.9 Rheumatoid arthritis, unspecified; F17.210 Nicotine dependence, cigarettes, uncomplicated; Z95.5 Presence of coronary angioplasty implant and graft; K27.9 Peptic ulcer, site unspecified, unspecified as acute or chronic, without hemorrhage or perforation; N18.3 Chronic kidney disease, stage 3 (moderate); Z85.038 Personal history of other malignant neoplasm of large intestine; Z88.0 Allergy status to penicillin; Z79.899 Other long term (current) drug therapy; Z79.82 Long term (current) use of aspirin; Z79.891 Long term (current) use of opiate analgesic
CPT/HCPCS: 36415; 51702; 71045; 72131; 74176; 80048; 80053; 80061; 80076; 81003; 82553; 83690; 83735; 83880; 84443; 84484; 85025; 93005; 93306; 93798; 96374; G8978-GP-CJ; G8979-GP-CI; G8987-GO-CK; G8988-GO-CI; J1644; J1940

== ENCOUNTER 2018-09-21 06:52 | Emergency (ER) | payer MEDICARE ==
[2018-09-21] MEDS ORDERED: Acetaminophen 325 MG TAB ONE (08:38)
[2018-09-21] MEDS ORDERED: traMADol HCl 50 MG TAB ONE (08:38)
== END 2018-09-21 09:25 | disposition home or self-care (01) ==
LOC: ERS 06:52
DX: M54.5 Low back pain (principal); I10 Essential (primary) hypertension; M06.9 Rheumatoid arthritis, unspecified; I25.2 Old myocardial infarction; E78.5 Hyperlipidemia, unspecified; Z87.891 Personal history of nicotine dependence; Z79.899 Other long term (current) drug therapy; Z79.82 Long term (current) use of aspirin; Z79.891 Long term (current) use of opiate analgesic
CPT/HCPCS: 99283